=== PATIENT | female | born 1970 | race Caucasian/White ===

== ENCOUNTER 2024-11-24 07:54 | Outpatient (CLI) | payer OTHER, SELFPAY ==
--- NOTE | 2024-11-24 | CA_ITS ---
APPROVED REPORT EXAM: Comprehensive 2D, Doppler, and color-flow Echocardiogram Neon Technician: Faviola Veloz RT(R) Ht: 5 ft 8 in Wt: 225lbs BSA: 2.15 BP: 135/66 mmHg Indications: CP, DM, fatigue 2D Dimensions LVEF (Jeffery's) 47.60 % F: 54 - 74 LV Volume 113.30 mL F: 46 - 106 LV Volume Index 52.7 mL/m2 F: 29 - 61 LA Volume 33.80 mL LA Volume Index 15.72 mL/m2 (M/F) 16-34 EF AP4 58.60 % EF AP2 33.6 % EF BP 47.6 % GL Strain -16.2 % M-Mode Dimensions RVDd 3.42 cm (0.9-2.6) LA Diam 3.79 cm (1.9-4.0) LVDd 4.75 cm (3.5-5.7) LVDs 3.38 cm (3.5-5.7) IVSd 0.93 cm (0.6-1.1) PWd 0.93 cm (0.6-1.1) EF (Teich) 55.40% FS 28.80% EDV (Teich) 104.90 mL ESV (Teich) 46.80 mL LV Diastology E Decel Time 150 (160-240 msec) E/A Ratio 0.8 Mitral Valve MV E Max Steve. 73.0 (40-130 cm/s) MV A Velocity 95.0 (40-130 cm/s) E/A Ratio 0.77 MV PHT 44.0 ms Left Ventricle The left ventricle is normal size. The left ventricular systolic function is normal. The left ventricular ejection fraction is within the normal range. There is increased LV wall thickness. There is normal LV segmental wall motion. The left ventricular diastolic function is normal. LVEF is 55%. Right Ventricle The right ventricle is normal size. The right ventricular systolic function is normal. Atria The left atrium size is normal. The right atrium size is normal. There is no Doppler evidence of interatrial shunt. Aortic Valve The aortic valve opens well. There is no aortic valvular stenosis. Trace aortic regurgitation. Mitral Valve The mitral valve is normal in structure. No evidence of mitral valve stenosis. Mild mitral regurgitation. Tricuspid Valve Tricuspid valve is grossly normal in structure and function. Trace tricuspid regurgitation. There is insufficent TR jet to estimate RVSP. Pulmonic Valve The pulmonary valve is normal in structure. Trace pulmonic regurgitation. Great Vessels The aortic root is normal in size. IVC is normal in size and collapses >50% with inspiration. Pericardium There is no pericardial effusion. Other Information Study Quality: Fair Conclusion Normal biventricular systolic function. Mild MR. Electronically signed by : Sofy Knox MD 12/03/2024 14:49:42
== END 2024-11-24 23:59 | disposition home or self-care (01) ==
LOC: RT 07:55
PROVIDERS: PCP Family Medicine; Visit Provider Internal Medicine
DX: R07.89 Other chest pain (principal)
CPT/HCPCS: 93306

== ENCOUNTER 2024-11-28 10:59 | Outpatient (CLI) | payer OTHER, SELFPAY ==
--- NOTE | 2024-11-28 | CA_ITS ---
APPROVED REPORT Exam: Pharmacologic Technologist: Patricia Seals Ht: 5 ft 8 in Wt: 225 lbs BSA: 2.15 m2 HR: 88 bpm BP: 171/75 mmHg Stress Test Details Test: Lexiscan HR Resting HR: 88 bpm Max Heart Rate (APMHR): 164 bpm Max HR Achieved: 104 bpm Target HR (85% APMHR): 139 bpm % of APMHR: 63 Recovery HR: 98 bpm BP Resting BP: 171.0/75.0 mmHg Max BP: 171.0/75.0 mmHg Recovery BP: 152.0/69.0 mmHg ECG Resting ECG: Sinus rhythm Stress ECG Conclusion Symptoms: Headache, chest pressure Arrhythmias/ectopy: - ST-T Changes: Less than [address] depression. Conclusion: EKG unremarkable due to Lexiscan infusion. Electronically signed by : Sofy Knox MD 11/29/2024 00:28:56
[2024-11-28] MEDS: SODIUM CHLORIDE 0.9% 10ML SYR (RAD ONLY) 10 ML IV ×2 (11:10→12:15)
--- NOTE | 2024-11-28 11:30 | NM_ITS ---
APPROVED REPORT Exam: Nuclear Stress Test Indication: htn, diabetes, hyperlipidemia, c.p., sob, fatigue Patient Location: Outpatient Stress Tech: Patricia Seals NM Tech:WALTER Parsons RT (R)(N)(M) Ht: 5 ft 8 in Wt: 220 lbs Bra Size: c HR: 88 bpm BP: 171/75 mmHg BSA: 2.13 m2 TID: 1.04 BMI: 33.4 History: htn, diabetes, hyperlipidemia, c.p., sob, fatigue Procedure: Patient received 0.4 mg of intravenous Lexiscan, resting heart rate 88 bpm, resting blood pressure 171/75 mmHg, with Lexiscan maximum heart rate achieved was 104 bpm which is % of the maximum predicted heart rate and blood pressure was 139/64 mmHg. pt did complain of chest pressure with lexiscan Cardiac Stress and Resting SPECT Images: Cardiac Stress and Resting SPECT images were obtained using technetium 99m Myoview 31.6 mCi stress and 10.77 mCi at rest. Technically difficult study due to significant soft tissue diaphragmatic overlap with the cardiac borders. This may affect the diagnostic interpretation of the study findings. Resting and stress imaging in supine positions demonstrate a medium sized, moderate, fixed perfusion defect in the basal anterior and basal inferior LV guy. Both of these perfusion defects are no longer visualized with prone stress imaging. Findings are suggestive of diaphragmatic and soft tissue attenuation. Gated imaging demonstrates normal global and regional LV systolic function. LVEF is calculated at 60%. Conclusion: Technically difficult study due to significant soft tissue diaphragmatic overlap with the cardiac borders. This may affect the diagnostic interpretation of the study findings. Diaphragmatic and soft tissue attenuation are present. Gated imaging demonstrates normal global and regional LV systolic function. LVEF is calculated at 60%. In the setting of technically difficult study, further evaluation with alternative imaging modalities (i.e. CCTA) may be suggested, if there is high clinical suspicion and if CCTA is feasible/indicated. Electronically signed by : Sofy Knox MD 11/29/2024 00:24:53
[2024-11-28] MEDS: REGADENOSON 0.4MG/5ML SYRINGE 0.4 MG IV (12:15)
[2024-11-28] MEDS: ISOTOPE MYOVIEW (PER STUDY) 1 DOSE IV (12:20)
--- OUTSIDE RECORDS SUMMARY | 2024-11-30 21:09 | XMS_ITS | Data Portability ---
Author Organization [facility] Address [address] [place] [address] Care Team Providers Care Silo Painter Name Role Phone [facility] END[facility] Referring Tye mars Assessment Encounter Date Assessment Date Assessment LastModified by Organization Details LastModified Time 02/04/2023 02/04/2023 Rosemarie schwab s for a wellness check up. She has poorly controlled type 2 diabetes mellitus that is complicated with severe peripheral neuropathy. For years she has also had issues with medication non-compliance. She is followed now by endocrinology but she missed many of her appointments and recently has resumed. A recent visit to endocrinology was discussed and she does understand the gravity of her disease and plans to take better care of herself and be more compliant with her medical visits. 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 She has trouble getting help at her business and feels she can never leave. We discussed that she will just at times need to consider closing for a couple of weeks in mid summer. She advises that her sister could cover for her if needed but she does live in [place]. We reviewed her medications and labs. We highly recommend resuming a statin medication and have ordered pravastatin and this has been a common theme for her. Medication compliance has been a problem. She has had some difficulty with insulin compliance in the past but advises she tries to stay compliant now. Her vision of course has been terrible with the hyperglycemia and the claims specialist she has been going to has just tried to adjust glasses. She really needs ophthalmology evaluation and follow up and we will refer to for that. There are no ophthalmologists in [place] for her to see and with her choices are more limited. A calculated ten year CV risk is 4.13%. She works long hours and also tries to do some yard work but recently has had a couple of falls in her yard with the weakness and numbness in her legs and feet. Both legs are very bruised from her recent falls and a little swollen. Her sensation is so poor that we are concerned about missing a DVT and/or even fractures, so imaging with venous duplex and lower leg x-rays are ordered. Her neuropathy also affects her hands and she cannot cloth picker small things with her fingers very easily. She is due a mammogram. Last year she finally had colon cancer screening and is now followed by a development educator for exocrine pancreatic insufficiency and has been compliant with the Creon supplement. The rash on top of the right foot is most consistent with tinea and she is using over the counter anti-fungal cream and should continue that. She declines flu vaccines stating that every time she received one she became ill. She has also declined Covid vaccines. She should have a tetanus update and receives that today. We also encourage the Shingrix series and she will consider that. We recommend a close follow up and continue to encourage healthy lifestyle choices. carolyn Not available 02/07/2023 10:52:33 04/05/2023 04/05/2023 Has a dental abs cess that is not responding to amoxil and her dentist advised her to see her PCP for management and he plans an extraction. She has had right rotator cuff surgery and has known rotator cuff syndrome on the left that is getting worse with radiation into the elbow and sometimes into the hand. We will recommend orthopedic referral for that. She prefers with the coverage. carolyn Not available 04/05/2023 15:54:22 10/26/2023 10/26/2023 Rosemarie present for symptoms of a UTI and her culture is reviewed. Treatment is started. She has very poorly controlled type 2 diabetes mellitus and has a history of questionable medication compliance as well as poor dietary habits. She has been referred to endocrinology but is not compliant with her follow ups there. Recent A1C is 13.9%. She has a profoundly severe peripheral neuropathy and cannot trim her own toenails without cutting herself so we will refer to podiatry. She went to a coating manager at but was advised she could not return for toenail issues there. Not available 10/27/2023 13:08:07 07/17/2024 07/17/2024 Rosemarie has a U TI that requires treatment and since there is flank pain we will also give a dose of Rocephin IM. She is encouraged to drink more water. She is followed by endocrinology and finally has her diabetes under better control. Not available 07/17/2024 11:50:31 11/09/2024 11/09/2024 Rosemarie has bee n having chest heaviness since August. She had it worse today and she blames it on the neck injection she had in August. We are concerned about her high risk for cardiac disease. She is taking Trulicity but has stopped the pravastatin and we encourage her to take it daily along with a low dose chewable aspirin. She declined to take the lisinopril for BP so we will prescribe a low dose of metoprolol instead. She needs Cardiac referral and is advised that she should go to the ER if this is getting worse. She is taking tylenol for pain and is advised to stay off all NSAIDs. Not available 11/09/2024 15:19:43 Plan of Treatment Reminders Order Date Submit Date Provider Last Modified By Organization Details Last Modified Time Details Appointments None recorded. Lab culture, urine 2023 024 [facility], [address], [place], [address], 4 09:35:36 urinalysis, dipstick 2023 024 margie n5 [facility], [address] [facility], [place], [address], 4 11:39:39 Referral cardiologis t referral 2024 025 moncho 12 Jr Knox MD, [address], [place], [address], 5 08:10:49 coating manager referral 2023 024 chavapleto n5 Danya Hutchinson MD, [address] , [place], [address], 4 12:10:37 orthopedic surgeon referral - left shoulder rotator cuff problems 2022 023 margie n5 Kevan Lopes MD, [address], [address], [place], [address], 3 08:25:39 ophthalmolo gist referral 2022 023 arnavo n5 [facility], [address], [address], [place], [address], 3 15:51:17 Procedures None recorded. Surgeries None recorded. Imaging MAMMO, screening, digital, bilateral 2022 023 [facility], [address] [facility] , [place], [address], 3 12:01:52 US, duplex, venous, lower extremity - positive Henrique right Swelling and recent injuries both lower legs 2022 023 [facility], [address] [facility] , [place], [address], 3 10:13:39 XR, tibia + fibula, 2 view - falls with extensive bruising and legs hurt but severe peripheral neuropathy form knees down alters her perception 2022 023 [email or web address] 12 [facility] (Imaging), [address] [facility] [place], [address], 3 08:03:17 Medication Orders metoprolol succinate ER 25 mg tablet,exte nded release 24 hr 2024 025 [facility], [address] [place], [address], 5 15:18:58 ciprofloxac in 500 mg tablet 2023 025 [facility], [address] [place], [address], 5 15:05:08 ceftriaxone 1 gram solution for injection 2023 024 [place] [address] [facility], [address] [place], [address], 5 15:04:43 ciprofloxac in 0.3 % eye drops 2023 025 [facility], [address] [place], [address], 5 15:04:59 nitrofurant oin monohydrate /macrocryst als 100 mg capsule 2023 024 [facility], [address] [place], [address], 4 11:47:04 gentamicin 40 mg/mL injection solution 2023 024 [place] [address] [facility], [address] [place], [address], 5 15:04:37 pravastatin 40 mg tablet 2023 024 [facility], [address] [place], [address], 4 11:42:25 ceftriaxone 1 gram solution for injection 2022 023 [place] [address] [facility], [address] [place], [address], 5 15:04:43 clindamycin HCl 150 mg capsule 2022 023 [email or web address] n5 [facility], [address] [place], [address], 4 10:39:23 oxycodone-a cetaminophe n 5 mg-325 mg tablet 2022 023 [facility], [address] [place], [address], 4 11:10:46 pravastatin 40 mg tablet 2022 023 [facility], [facility] [place], [address], 3 08:36:59 Patient TargetsNo targets recorded. Patient Instructions Encounter Date Encounter Id Patient Instructions Last Modified By Organization Details Last Modified Time 02/04/2023 [id number] recombinant zoster (shingles) vaccine: what you need to know Not available 02/04/2023 12:28:06 learning about healthy weight Not available 02/04/2023 12:28:06 Reason for Referral Home Energy Auditor Referral for Insulin treated type 2 diabetes mellitus Referring Physician: [facility], Encounter Date: 02/04/2023 Orthopedic Surgeon Referral for Pain of left shoulder joint left shoulder rotator cuff problems Referring Physician: [facility], Encounter Date: 04/05/2023 Lab Technologist Referral for Unab le to cut own toenails Referring Physician: [facility], Encounter Date: 10/26/2023 Puffer Tender Referral for Ch est pain Referring Physician: [facility], Encounter Date: 11/09/2024 Results Created Date Observation Date Name Description Value Unit Range Abnormal Flag Note LastModifiedBy Organization Detail LastModifiedTime 01/30/2001/29/2023 micro album in/cr eatin ine, ratio panel , urine microalbumin :creatinine 40 high Not Available [facility] (Lab) [address] [facility] [place], [address], 01/30/2023 08:18:00 01/30/20 23 01/29/2023 hepat itis C virus Ab, serum hepatitis C Ab negati ve normal Not Available [facility] (Lab) [address] [facility] [place], [address], 01/30/2023 09:13:29 01/30/20 23 01/29/2023 HbA1c (hemo globi n A1c), blood HGBA1C 13.2 high Not Available [facility] (Lab) [address] [facility] [place], [address], 01/29/2023 10:44:58 01/30/20 23 01/29/2023 HbA1c (hemo globi n A1c), blood cholesterol 196 normal Not Available [facility] (Lab) [address] [facility] [place], [address], 01/29/2023 10:44:58 01/30/20 23 01/29/2023 HbA1c (hemo globi n A1c), blood LDL 108 normal Not Available [facility] (Lab) [address] [facility] [place], [address], 01/29/2023 10:44:58 01/30/20 23 01/29/2023 HbA1c (hemo globi n A1c), blood glucose 367 high Not Available [facility] (Lab) [address] [facility] [place], [address], 01/29/2023 10:44:58 01/30/20 23 01/29/2023 HbA1c (hemo globi n A1c), blood potassium 4.3 normal Not Available [facility] (Lab) [address] [facility] [place], [address], 01/29/2023 10:44:58 01/30/20 23 01/29/2023 TSH, serum or plasm a HGBA1C 13.2 high Not Available [facility] (Lab) [address] [facility] [place], [address], 01/29/2023 10:44:58 01/30/20 23 01/29/2023 TSH, serum or plasm a cholesterol 196 normal Not Available [facility] (Lab) [address] [facility] [place], [address], 01/29/2023 10:44:58 01/30/20 23 01/29/2023 TSH, serum or plasm a LDL 108 normal Not Available [facility] (Lab) [address] [facility] [place], [address], 01/29/2023 10:44:58 01/30/20 23 01/29/2023 TSH, serum or plasm a glucose 367 high Not Available [facility] (Lab) [address] [facility] [place], [address], 01/29/2023 10:44:58 01/30/20 23 01/29/2023 TSH, serum or plasm a potassium 4.3 normal Not Available [facility] (Lab) [address] [facility] [place], [address], 01/29/2023 10:44:58 01/30/20 23 01/29/2023 lipid panel , serum HGBA1C 13.2 high Not Available [facility] (Lab) [address] [facility] [place], [address], 01/29/2023 10:44:58 01/30/20 23 01/29/2023 lipid panel , serum cholesterol 196 normal Not Available [facility] (Lab) [address] [facility] [place], [address], 01/29/2023 10:44:58 01/30/20 23 01/29/2023 lipid panel , serum LDL 108 normal Not Available [facility] (Lab) [address] [facility] [place], [address], 01/29/2023 10:44:58 01/30/20 23 01/29/2023 lipid panel , serum glucose 367 high Not Available [facility] (Lab) [address] [facility] [place], [address], 01/29/2023 10:44:58 01/30/20 23 01/29/2023 lipid panel , serum potassium 4.3 normal Not Available [facility] (Lab) [address] [facility] [place], [address], 01/29/2023 10:44:58 01/30/20 23 01/29/2023 CMP, serum or plasm a HGBA1C 13.2 high Not Available [facility] (Lab) [address] [facility] [place], [address], 01/29/2023 10:44:58 01/30/20 23 01/29/2023 CMP, serum or plasm a cholesterol 196 normal Not Available [facility] (Lab) [address] [facility] [place], [address], 01/29/2023 10:44:58 01/30/20 23 01/29/2023 CMP, serum or plasm a LDL 108 normal Not Available [facility] (Lab) [address] [facility] [place], [address], 01/29/2023 10:44:58 01/30/20 23 01/29/2023 CMP, serum or plasm a glucose 367 high Not Available [facility] (Lab) [address] [facility] [place], [address], 01/29/2023 10:44:58 01/30/20 23 01/29/2023 CMP, serum or plasm a potassium 4.3 normal Not Available [facility] (Lab) [address] [facility] [place], [address], 01/29/2023 10:44:58 01/30/20 23 01/29/2023 CBC w/ auto diff HGBA1C 13.2 high Not Available [facility] (Lab) [address] [facility] [place], [address], 01/29/2023 10:13:49 01/30/20 23 01/29/2023 CBC w/ auto diff cholesterol 196 normal Not Available [facility] (Lab) [address] [place] [address] [place], [address], 01/29/2023 10:13:49 01/30/20 23 01/29/2023 CBC w/ auto diff LDL 108 normal Not Available [facility] (Lab) [address] [place] [address] [place], [address], 01/29/2023 10:13:49 01/30/20 23 01/29/2023 CBC w/ auto diff glucose 367 high Not Available [facility] (Lab) [address] [place] [address] [place], [address], 01/29/2023 10:13:49 01/30/20 23 01/29/2023 CBC w/ auto diff potassium 4.3 normal Not Available [facility] (Lab) [address] [place] [address] [place], [address], 01/29/2023 10:13:49 04/07/20 23 04/07/2023 hospi yojana labs HGBA1C 8.7 high Not Available [facility] (Lab) [address] [place] [address] [place], [address], 04/07/2023 09:34:08 04/07/20 23 04/07/2023 [facility] labs cholesterol 172 normal Not Available [facility] (Lab) [address] [place] [address] [place], [address], 04/07/2023 09:34:08 04/07/20 23 04/07/2023 [facility] labs triglyceride s 140 normal Not Available [facility] (Lab) [address] [place] [address] [place], [address], 04/07/2023 09:34:08 04/07/20 23 04/07/2023 [facility] labs LDL 86 normal Not Available [facility] (Lab) [address] [place] [address] [place], [address], 04/07/2023 09:34:08 04/07/20 23 04/07/2023 [facility] labs HDL 58 normal Not Available [facility] (Lab) [address] [facility] [place], [address], 04/07/2023 09:34:08 10/21/19 24 10/21/2023 urina lysis compl ete, refle x cultu re HGBA1C 13.9 critical high Not Available [facility] [address] [place], [address], 10/21/2023 10:31:08 10/21/19 24 10/21/2023 CMP, serum or plasm a HGBA1C 13.9 critical high Not Available [facility] [address] [place], [address], 10/21/2023 10:31:08 10/21/19 24 10/21/2023 CBC w/ auto diff HGBA1C 13.9 critical high Not Available [facility] [address] [place], [address], 10/21/2023 10:29:13 07/17/20 24 07/20/2024 CULTU RE, URINE , ROUTI NE culture, urine, routine abnormal CULTU RE, URINE , ROUTI NE Micro Numbe r: [id number] Test Statu s: Final Speci men Sourc e: Urine Speci men Quali ty: Adequ ate Resul t: 50,00 0-100 ,000 CFU/m L of Klebs iella pneum oniae K.pne umoni ae ----- ----- ----- - INT EMILIA AMOX/ CLAVU LANAT E S <=2 AMP/S ULBAC TROTTER S 8 CEFAZ TYLER NR <=4 2 CEFEP HERNANDO S <=0.1 2 CEFTA ZIDIM E S <=1 CEFTR IAXON E S <=0.2 5 CIPRO FLOXA PIETRO S <=0.0 6 GENTA MICIN S <=1 IMIPE NEM S <=0.2 5 LEVOF LOXAC IN S <=0.1 2 MEROP ENEM S <=0.2 5 NITRO FURAN TOIN I 64 PIP/T AZOBA CTAM S <=4 TRIME THOPR IM/FERNANDEZ LFA S <=20 S = Susce ptibl e I = Inter media te R = Resis tant NS = Not susce ptibl e SDD = Susce ptibl e Dose Depen dent * = Not Teste d NR = Not Repor jacoby NN = See Thera py Comme nts THERA PY COMME NTS Note 1: For infec tions other than uncom plica jacoby UTI cause d by E. coli, K. pneum oniae or P. mirab ilis: Cefaz tyler is resis tant if EMILIA > or = 8 mcg/m L. (Dist ingui shing susce ptibl e versu s inter media te for isola prabhu with EMILIA < or = 4 mcg/m L requi res addit ional testi ng.) Note 2: For uncom plica jacoby UTI cause d by E. coli, K. pneum oniae or P. mirab ilis: Cefaz tyler is susce ptibl e if EMILIA <32 mcg/m L and predi cts susce ptibl e to the oral agent s cefac cayetano, cefdi paco, cefpo doxim e, cefpr ozil, cefur oxime , cepha lexin and lorac arbef . Not Available [facility] [address] [facility], [place], [address], 07/20/2024 09:35:36 07/17/20 24 07/17/2024 urina lysis , dipst ick Leukocytes Modera te Not Available [facility] [address] [place], [address], 07/17/2024 11:38:45 07/17/20 24 07/17/2024 urina lysis , dipst ick Nitrite positi ve Not Available [facility] [address] [place], [address], 07/17/2024 11:38:45 07/17/2007/17/2024 urina lysis , dipst ick Urobilinogen .2 Not Available [facility] [address] [place], [address], 07/17/2024 11:38:45 07/17/2007/17/2024 urina lysis , dipst ick Protein Negati ve Not Available [facility] [address] [place], [address], 07/17/2024 11:38:45 07/17/2007/17/2024 urina lysis , dipst ick pH 6.5 Not Available [facility] [address] [place], [address], 07/17/2024 11:38:45 07/17/2007/17/2024 urina lysis , dipst ick Blood Negati ve Not Available [facility] [address] [place], [address], 07/17/2024 11:38:45 07/17/2007/17/2024 urina lysis , dipst ick Specific [place] 1.030 Not Available [facility] [address] [place], [address], 07/17/2024 11:38:45 07/17/2007/17/2024 urina lysis , dipst ick Ketone Negati ve Not Available [facility] [address] [place], [address], 07/17/2024 11:38:45 07/17/2007/17/2024 urina lysis , dipst ick Bilirubin Negati ve Not Available [facility] [address] [place], [address], 07/17/2024 11:38:45 07/17/2007/17/2024 urina lysis , dipst ick Glucose Negati ve Not Available [facility] [address] , [place], [address], 07/17/2024 11:38:45 02/06/20 23 02/05/2023 XR, tibia + fibul a, 2 view No observ ation record ed. [address] (Central Scheduling) [address] [facility] [place], [address], 02/19/2023 14:01:09 02/06/20 23 02/05/2023 XR, tibia + fibul a, 2 view No observ ation record ed. [address] (Central Scheduling) [address] [facility] [place], [address], 02/19/2023 14:01:09 02/12/20 23 02/11/2023 US, lindale x, venou s, lower extre mity No observ ation record ed. [address] (Central Scheduling) [address] [facility] [place], [address], 02/19/2023 14:01:10 02/12/20 23 02/11/2023 MAMMO , scree giuseppe, digit al, bilat eral No observ ation record ed. [address] (Central Scheduling) [address] [facility] [place], [address], 02/19/2023 14:01:10 02/20/20 23 02/19/2023 MAMMO , diagn ostic , contr ast enhan yessica, digit al, unila teral No observ ation record ed. [address] (Central Scheduling) [address] [facility] [place], [address], 02/21/2023 12:29:07 02/20/20 23 02/19/2023 MAMMO , scree giuseppe, unila teral No observ ation record ed. [address] (Central Scheduling) [address] [facility] [place], [address], 02/21/2023 12:32:31 03/18/20 23 03/18/2023 XR, chest , 2 view No observ ation record ed. [address] (Central Scheduling) [address] [facility] [place], [address], 03/23/2023 17:27:31 08/13/20 23 08/08/2023 XR, knee No observ ation record ed. [address] (Central Scheduling) [address] [facility] [place], [address], 09/03/2023 15:50:00 08/13/20 23 08/08/2023 XR, hip, unila teral , 2 or 3 view No observ ation record ed. [address] (Central Scheduling) [address] [facility] [place], [address], 09/03/2023 15:49:07 06/29/20 24 06/27/2024 US, bubba x, amanda s, extre mity, compl ete No observ ation record ed. [address] [facility] [address], [place], [address], 07/02/2024 11:15:08 11/30/19 25 11/28/2024 imagi ng/di agnos tic resul t No observ ation record ed. [place] [address], [place], [address], 11/29/2024 00:27:52 11/30/19 25 11/28/2024 imagi ng/di agnos tic resul t No observ ation record ed. [facility] [address], [place], [address], 11/29/2024 00:32:28 Result Notes None recorded. Problems Name Problem SNOMED Code Status Onset Date Resolution Date Notes Provider Name and Address Organization Details Recorded Time Abdominal pain [id number] Rebeca Guzman MD [address], [address] [place] [address], [facility] 6 10:11:24 Palpitations [id number] Rebeca Guzman MD [address] [place] [address], [facility] 6 10:11:24 Disorder due to type 2 diabetes mellitus 724932696 Active Marely Guzman MD [address] [address], [facility] 6 20:07:02 Hypertensive disorder 13036514 Active Marely Guzman MD [address] [address], [facility] 6 10:11:24 Diabetes mellitus 80910289 Active Marely Guzman MD [address] [address], [facility] 6 10:11:24 Edema [id number] Rebeca Guzman MD [address] [address], [facility] 6 10:11:24 Foot joint - painful on movement [id number] Rebeca Guzman MD [address] [address], [facility] 6 10:11:24 Joint pain in ankle and foot Active Marely Guzman MD [address] [address], [facility] 6 10:11:24 Peripheral neuropathic pain [id number] Rebeca Guzman MD [address] [address], [facility] 6 10:11:24 Cellulitis of lower limb [id number] Rebeca Guzman MD [address] [address], [facility] 6 10:11:24 Ankle joint pain [id number] Rebeca Guzman MD [address] [address], [facility] 6 10:11:24 Dog bite - wound [id number] Rebeca Guzman MD [address] [address], [facility] 6 10:11:24 Neuropathy 724139198 Rebeca Guzman MD [address] [address], [facility] 6 10:11:24 Dyspnea 758991615 Rebeca Guzman MD [address] [address], [facility] 6 10:11:24 Type 2 diabetes mellitus [id number] Rebeca Guzman MD [address] [address], [facility] 6 10:11:24 Menopausal problem [id number] Rebeca Guzman MD [address] [address], [facility] 6 10:11:24 Dry skin dermatitis [id number] Rebeca Guzman MD [address] [address], [facility] 6 10:11:24 Onychomycosis 145373802 Active Marely Guzman MD [address] [address], [facility] 6 10:11:24 Hyperglycemia 91698872 Active Marely Guzman MD [address] [address], [facility] 6 20:07:02 Dermatophytosi s of the body Active Marely Guzman MD [address] [address], [place] [facility] 6 10:11:24 Gastroesophage al reflux disease 632606328 Active Marely Guzman MD [address] [address], [place] [facility] 6 10:11:24 Urinary tract infectious disease 90229501 Active Marely Guzman MD [address] [address], [place] [facility] 6 10:11:24 Benign essential hypertension 0435541 Active Marely Guzman MD [address] [address], [place] [facility] 6 10:11:24 Disorder of peripheral autonomic nervous system 881969379 Active Marely Guzman MD [address] [address], [facility] 6 10:11:24 Allergic rhinitis 87097036 Active Marely Guzman MD [address] [address], [facility] 6 10:11:24 Disorder of urinary tract 64432581 Active Marely Guzman MD [address] [address], [place] [facility] 6 10:11:24 Disorder of nervous system due to type 2 diabetes mellitus [id number] Rebeca Guzman MD [address] [address], [facility] 6 10:11:24 Sciatica 56552979 Rebeca Guzman MD [address] [address], [facility] 6 10:11:24 Pure hyperglyceride miroslava [id number] Rebeca Guzman MD [address] [address], [facility] 6 10:11:24 Type 2 diabetes mellitus without complication [id number] Rebeca Guzman MD [address] [address], [facility] 6 10:11:24 Obstructive sleep apnea syndrome 24222400 Rebeca Guzman MD [address] [address], [facility] 6 10:11:24 Anemia 602860504 Rebeca uGzman MD [address] [address], [facility] 6 10:11:24 Hyperlipidemia 35281944 Rebeca Guzman MD [address] [address], [facility] 6 10:11:24 Backache [id number] Rebeca Guzman MD [address] [address], [place] - [facility] 6 10:11:24 Urine finding 103362283 Active Marely Guzman MD [address] [address], [place] [facility] 6 10:11:24 Malaise and fatigue 888434261 Active Marely Guzman MD [address] [address], [place] [facility] 6 10:11:24 Mononeuritis of lower limb Active Marely Guzman MD [address] [address], [place] [facility] 6 10:11:24 Candidal vulvovaginitis 70112361 Active Marely Gzuman MD [address] [address], [place] [facility] 6 20:07:02 Polyuria 03469476 Active Marely Guzman MD [address] [address], [place] [facility] 6 10:11:24 Carpal tunnel syndrome 02987419 Active Marely Guzman MD [address] [address], [place] [facility] 6 10:11:24 Pancreatic steatorrhea 49670045 Active Marely Guzman MD [address] [address], [place] [facility] 6 10:11:24 Insomnia with sleep apnea 92304671 Active Marely Guzman MD [address] [address], [place] - [facility] 6 10:11:24 Acute pancreatitis 661871228 Active Marely Guzman MD [address] [address], [place] [facility] 6 10:11:24 Depressive disorder 21964623 Active Marely Guzman MD [address] [address], [place] [facility] 6 10:11:24 Proteinuria 85766174 Active Marely Guzman MD [address] [address], [place] [facility] 6 10:11:24 Cellulitis and abscess of toe 313674853 Active Marely Guzman MD [address] [address], [place] [facility] 6 10:11:24 Obesity 432507169 Active Marely Guzman MD [address] [address], [place] [facility] 6 10:11:24 Enthesopathy of elbow region 09835181 Active Marely Guzman MD [address] [address], [place] [facility] 6 10:11:24 Lyme disease 10483681 Active Marely Guzman MD [address] [address], [place] [facility] 6 10:11:24 Chest pain 84046569 Active Marely Guzman MD [address] [address], [place] 6 10:11:24 Low back pain 937251352 Active Marely Guzman MD [address] [facility], [place], [address], [facility] 6 10:11:24 Problem Notes None recorded. Procedures Surgical History Date Name Laterality Status Provider Name and Address Organization Details Recorded Time 04/28/20 18 Shoulder joint surgery completed Marely Guzman MD [address] [facility], [place], [address], [facility] 01/22/2020 10:15:24 12/22/19 18 Shoulder joint surgery completed Marely Guzman MD [address] [facility] [address], [place], [address], [facility] 01/22/2020 10:14:22 08/23/19 11 Other completed Not Available [facility] 07/07/2011 04:58:32 08/23/19 10 Cholecystectomy completed Not Available [facility] hospital 07/07/2011 04:58:32 08/23/19 02 Hysterectomy completed Not Available [facility] hospital 07/07/2011 04:58:32 Imaging Results Imaging Date Name Status LastModified by Organiz ation Details LastModified Time 02/05/2023 XR, tibia + fibula, 2 view completed [address] (Central Scheduling) [address] [facility] [place], [address], 02/19/2023 14:01:09 02/05/2023 XR, tibia + fibula, 2 view completed [address] (Central Scheduling) [address] [facility] [place], [address], 02/19/2023 14:01:09 02/11/2023 US, duplex, venous, lower extremity completed [address] (Central Scheduling) [address] [facility] [place], [address], 02/19/2023 14:01:10 02/11/2023 MAMMO, screening, digital, bilateral completed [address] (Central Scheduling) [address] [facility] [place], [address], 02/19/2023 14:01:10 02/19/2023 MAMMO, diagnostic, contrast enhanced, digital, unilateral completed [address] (Central Scheduling) [address] [facility] [place], [address], 02/21/2023 12:29:07 02/19/2023 MAMMO, screening, unilateral completed [address] (Central Scheduling) [address] [facility] [place], [address], 02/21/2023 12:32:31 03/18/2023 XR, chest, 2 view completed [address] (Central Scheduling) [address] [facility] [place], [address], 03/23/2023 17:27:31 08/08/2023 XR, knee completed [address] (Central Scheduling) [address] [facility] [place], [address], 09/03/2023 15:50:00 08/08/2023 XR, hip, unilateral, 2 or 3 view completed [address] (Central Scheduling) [address] [place] [address] [place], [address], 09/03/2023 15:49:07 06/27/2024 US, duplex, venous, extremity, complete completed [address] [facility] [address] [facility] [address], [place], [address], 07/02/2024 11:15:08 11/28/2024 imaging/diagnos tic result active [facility] [address], [address], 11/29/2024 00:27:52 11/28/2024 imaging/diagnos tic result active [facility] [address], [address], 11/29/2024 00:32:28 Procedure Notes None recorded. Medical Equipment None Reported. Allergies No known drug allergies Medications Name Sig Start Date Stop Date Status Note LastModified by Organization Details LastModified Time Prescript ion - Prior Authoriza tion Request 05/23 completed Not Available Not Available Not Available cyclobenz aprine 10 mg tablet TAKE 1 TABLET BY MOUTH EVERY 8 HOURS NEEDED 11/09 completed Not Available Not Available Not Available amoxicill in 500 mg capsule TAKE 1 CAPSULE BY MOUTH TWICE DAILY FOR 7 DAYS 01/12 completed Not Available Not Available Not Available methocarb whitney 500 mg tablet TAKE 1 TABLET BY MOUTH THREE TIMES DAILY NEEDED FOR MUSCLE SPASMS 11/09 completed Not Available Not Available Not Available metformin 500 mg tablet TAKE 2 TABLETS BY MOUTH TWICE DAILY. 01/12 completed Not Available Not Available Not Available nystatin 100,000 unit/mL oral suspensio n SWISH AND SWALLOW 10 ML BY MOUTH 4 TIMES DAIY BEFORE MEALS AND AT BEDTIME 01/12 completed Not Available Not Available Not Available Vitamin B-12 1,000 mcg/mL injection solution Inject 1 mL every month by intramus cular route. 2011 active Not Available Not Available Not Avai lable clindamyc in HCl 300 mg capsule 08/16 completed Not Available Not Available Not Available azithromy pietro 250 mg tablet TAKE 2 TABLETS BY MOUTH THE FIRST DAYS DOSE, THEN TAKE 1 TABLET DAILY FOR 4 MORE DAYS. 01/12 completed Not Available Not Available Not Available pravastat in 40 mg tablet TAKE 1 TABLET BY MOUTH EACH EVENING. active Not Available Not Available No t Available Glucagon Emergency Kit 1 mg solution for injection USE DIRECTED . active Not Available Not Available No t Available nystatin 100,000 unit/gram topical ointment APPLY TO THE AFFECTED AREA TWICE DAILY. 10/30 completed Not Available Not Available Not Available fluconazo le 150 mg tablet TAKE 1 TABLET BY MOUTH DAILY. 01/12 completed Not Available Not Available Not Available hydrocodo ne 5 mg-acetam inophen 325 mg tablet 04/24 completed Not Available Not Available Not Available meloxicam 15 mg tablet TAKE 1 TABLET BY MOUTH DAILY PRN Shoulder pain 11/09 completed Not Available Not Available Not Available FreeStyle Lancets 28 gauge USE TO TEST GLUCOSE 3 TIMES DAILY active Not Available Not Available No t Available lisinopri l 20 mg tablet TAKE 1 TABLET DAILY 01/12 completed Not Available Not Available Not Available clindamyc in HCl 150 mg capsule TAKE 1 CAPSULE BY MOUTH EVERY 6 HOURS FOR 7 DAYS. 10/25 completed Not Available Not Available Not Available metronida zole 500 mg tablet Take 1 tablet every 8 hours by oral route for 7 days. 08/16 completed Not Available Not Available Not Available ciproflox acin 250 mg tablet TAKE 1 TABLET BY MOUTH EVERY 12 HOURS FOR 5 DAYS. 10/25 completed Not Available Not Available Not Available ciproflox acin 500 mg tablet Take 1 tablet twice a day by oral route for 7 days. 11/09 completed Not Available Not Available Not Available sulfameth oxazole 800 mg-trimet hoprim 160 mg tablet TAKE 1 TABLET EVERY 12 HOURS 01/12 completed Not Available Not Available Not Available hydrocodo ne 10 mg-acetam inophen 325 mg tablet Take 1 tablet every 6 hours by oral route as needed. 02/21 completed Not Available Not Available Not Available tramadol 50 mg tablet 04/15 completed Not Available Not Available Not Available spironola ctone 25 mg tablet TAKE 1 TABLET BY MOUTH EVERY DAY. 10/02 completed Not Available Not Available Not Available butalbita l-acetami nophen-ca ffeine 50 mg-325 mg-40 mg tablet TAKE 1 TABLET BY MOUTH EVERY 4 HOURS NEEDED. 01/12 completed Not Available Not Available Not Available ketorolac 10 mg tablet 01/21 completed Not Available Not Available Not Available Aleve 220 mg tablet Take 1 tablet every 12 hours by oral route as needed. 01/07 completed Not Available Not Available Not Available oxycodone -acetamin ophen 5 mg-325 mg tablet TAKE 1 TABLET BY MOUTH EVERY 6 HOURS NEEDED FOR 3 DAYS. 10/25 completed Not Available Not Available Not Available ceftriaxo ne 1 gram solution for injection Take 0.25 g by injectio n route. 11/09 completed Not Available Not Available Not Available amitripty line 25 mg tablet Take 1 tablet every day by oral route at bedtime for 30 days. 2011 active Not Available Not Available Not Avai lable oxycodone -acetamin ophen 10 mg-325 mg tablet 06/16 completed Not Available Not Available Not Available gabapenti n 800 mg tablet 1 po tid prn chronic pain 01/12 completed Not Available Not Available Not Available ciproflox acin 0.3 % eye drops INSTILL 1 DROP INTO AFFECTED EYE(S) BY OPHTHALM IC ROUTE EVERY 2 HOURSWHI LE AWAKE FOR 2 DAYS THEN 1 DROP EVERY 4 HRS WHILE AWAKE FOR 5 DAYS 11/09 completed Not Available Not Available Not Available phenazopy ridine 100 mg tablet TAKE 1 TABLET BY MOUTH THREE TIMES DAILY NEEDED. 12/10 completed Not Available Not Available Not Available baclofen 10 mg tablet 1 bid ( from ER) 05/24 completed Not Available Not Available Not Available gemfibroz il 600 mg tablet Take 1 tablet twice a day by oral route before meals for 30 days. 2011 active not taking Not Available Not Available Not Available cephalexi n 500 mg capsule TAKE 1 CAPSULE BY MOUTH EVERY 6 HOURS FOR 10 DAYS 01/12 completed Not Available Not Available Not Available pantopraz ole 40 mg tablet,de layed release TAKE 1 TABLET BY MOUTH ONCE DAILY 11/09 completed Not Available Not Available Not Available erythromy pietro 5 mg/gram (0.5 %) eye ointment 08/10 completed Not Available Not Available Not Available esomepraz ole magnesium 40 mg capsule,d elayed release TAKE 1 CAPSULE DAILY 01/21 completed Not Available Not Available Not Available nitrofura ntoin macrocrys yojana 100 mg capsule TAKE 1 CAPSULE BY MOUTH EVERY 12 HOURS WITH MEALS FOR 7 DAYS. 07/17 completed Not Available Not Available Not Available nystatin 100,000 unit/gram topical cream Apply twice a day by topical route as needed 12/18 completed Not Available Not Available Not Available lisinopri l 10 mg tablet TAKE 1 TABLET DAILY 05/24 completed Not Available Not Available Not Available glimepiri de 4 mg tablet Take 1 tablet every day by oral route for 30 days. 2012 active stopped this one Not Available Not Available Not Available lidocaine 5 % topical patch APPLY 1 PATCH TO SKIN FOR 12 HOURS, THEN REMOVE FOR 12 HOURS. active Not Available Not Available No t Available indometha pietro 25 mg capsule 09/06 completed Not Available Not Available Not Available gabapenti n 300 mg capsule Take 1 capsule 4 times a day by oral route as needed for 30 days. 2011 active Not Available Not Available Not Avai lable omeprazol e 20 mg capsule,d elayed release 09/06 completed Not Available Not Available Not Available aspirin 81 mg chewable tablet Chew 1 tablet every day by oral route. active Not Available Not Available No t Available diclofena c sodium 75 mg tablet,de layed release 02/21 completed Not Available Not Available Not Available ammonium lactate 12 % topical cream APPLY TO FOOT AND LEG BILATERA L TWICE DAILY active Not Available Not Available No t Available pravastat in 20 mg tablet Take 1 tablet every day by oral route in the evening. 10/31 completed Not Available Not Available Not Available lisinopri l 5 mg tablet 1 po daily 11/09 completed Not Available Not Available Not Available hydrochlo rothiazid e 25 mg tablet Take 1 tablet every day by oral route for 30 days. active Not Available Not Available No t Available mupirocin 2 % topical ointment APPLY TO THE AFFECTED AREA THREE TIMES DAILY. 12/16 completed Not Available Not Available Not Available metoprolo l succinate ER 25 mg tablet,ex tended release 24 hr TAKE 1 TABLET BY MOUTH DAILY active Not Available Not Available No t Available ibuprofen 600 mg tablet TAKE 1 TABLET EVERY 6 HOURS NEEDED. 02/04 completed Not Available Not Available Not Available oxycodone -acetamin ophen 7.5 mg-325 mg tablet 05/17 completed Not Available Not Available Not Available gentamici n 40 mg/mL injection solution Take 2 mL by injectio n route. 11/09 completed Not Available Not Available Not Available zolpidem 10 mg tablet Take 1 tablet every day by oral route in the evening for 30 days. 2011 active not taking now Not Available Not Available Not Available ketorolac 60 mg/2 mL intramusc ular solution Inject 1 mL by intramus cular route. 10/25 completed Not Available Not Available Not Available ketoconaz ole 2 % topical cream Apply by topical route bid to affected skin 2012 active Not Available Not Available Not Avai lable fluoxetin e 20 mg capsule Take 2 capsules every day by oral route for 30 days. 2011 active Not Available Not Available Not Avai lable metformin ER 500 mg tablet,ex tended release 24 hr 1 po q pm 10/25 completed Not Available Not Available Not Available doxycycli ne hyclate 100 mg tablet Take 1 tablet twice a day by oral route for 30 days. 05/10 completed Not Available Not Available Not Available loratadin e 10 mg tablet Take 1 tablet every day by oral route for 90 days. 2011 active Not Available Not Available Not Avai lable amoxicill in 875 mg-potass ium clavulana te 125 mg tablet TAKE 1 TABLET EVERY 12 HOURS WITH MEALS. 02/04 completed Not Available Not Available Not Available esomepraz ole magnesium 20 mg capsule,d elayed release Take 1 capsule every day by oral route. 01/21 completed Not Available Not Available Not Available Estrace 0.01% (0.1 mg/gram) vaginal cream Insert by vaginal route and use external ly as directed 10/02 completed Not Available Not Available Not Available Novolog Mix 70-30 FlexPen U-100 Insulin 100 unit/mL subcutane ous pen INJECT 25 UNITS BEFORE BREAKFAS T AND BEFORE DINNER WITH TITRATIO N TO MAXIMUM DAILY DOSE OF 150 active Not Available Not Available No t Available Vitamin D3 25 mcg (1,000 unit) capsule Take by oral route. 01/13 completed Not Available Not Available Not Available Novolog FlexPen U-100 Insulin aspart 100 unit/mL (3 mL) subcutane ous Inject 30 units 3 times a day by subcutan eous route as directed for 90 days. 01/07 completed Not Available Not Available Not Available nitrofura ntoin monohydra te/macroc rystals 100 mg capsule Take 1 capsule every 12 hours by oral route for 7 days. 06/14 completed Not Available Not Available Not Available duloxetin e 30 mg capsule,d elayed release TAKE 3 CAPSULES DAILY 12/16 completed Not Available Not Available Not Available duloxetin e 60 mg capsule,d elayed release Take 1 capsule every day by oral route for 30 days. 2013 active Not Available Not Available Not Avai lable Lyrica 150 mg capsule Take 1 capsule twice a day by oral route. 2012 active Not Available Not Available Not Avai lable Vitamin D3 5000 units daily 01/07 completed Not Available Not Available Not Available NovoFine 30 30 gauge x 1/3 needle active Not Available Not Available Not Available hydrochlo rothiazid e 12.5 mg tablet TAKE 1 TABLET BY MOUTH ONCE DAILY. 12/16 completed Not Available Not Available Not Available FreeStyle Lite Strips USE DIRECTED TO TEST GLUCOSE 3 TIMES DAILY active Not Available Not Available No t Available Lantus Solostar U-100 Insulin 100 unit/mL (3 mL) subcutane ous pen INJECT 60 UNITS UNDER THE SKIN EVERY EVENING 12/16 completed Not Available Not Available Not Available Cholestyr amine Light 4 gram oral powder TAKE 1/4 SCOOP TWICE DAILY BEFORE MEALS. 01/12 completed Not Available Not Available Not Available Easy Touch 31 gauge x 3/16 needle USE TWICE A DAY TO DELIVER INSULIN active Not Available Not Available No t Available ketorolac 30 mg/mL injection solution Inject 1 mL every 6 hours by intraven ous route. 2012 active toradol Not Available Not Available Not Avai lable Dexilant 60 mg capsule, delayed release Take 1 capsule every day by oral route for 90 days. 2011 active Not Available Not Available Not Avai lable Suprep Bowel Prep Kit 17.5 gram-3.13 gram-1.6 gram oral solution USE DIRECTED 01/12 completed Not Available Not Available Not Available Creon 36,000 unit-114, 000 unit-180, 000 unit capsule,d elayed release TAKE 1 CAPSULE BY MOUTH WITH EACH MEAL AND SNACK 10/25 completed Not Available Not Available Not Available Levemir FlexTouch U-100 Insulin 100 unit/mL (3 mL) subcutane ous pen Inject 60 units every day by subcutan eous route in the evening for 90 days. 01/21 completed Not Available Not Available Not Available Jardiance 10 mg tablet TAKE 1 TABLET BY MOUTH EVERY DAY. 08/10 completed Not Available Not Available Not Available Jardiance 25 mg tablet Take 1 tablet every day by oral route. 01/03 completed Not Available Not Available Not Available Trulicity 1.5 mg/0.5 mL subcutane ous pen injector active Not Available Not Available Not Available Trulicity 0.75 mg/0.5 mL subcutane ous pen injector 07/17 completed Not Available Not Available Not Available BD Ultra-Fin e Micro Pen Needle 32 gauge x 1/4 USE DIRECTED TWICE DAILY. active Not Available Not Available No t Available Novolin 70-30 FlexPen U-100 Insulin 100 unit/mL (70-30) subcutane ous Inject 34 units twice a day by subcutan eous route. active Not Available Not Available No t Available FreeStyle Ricardo 3 Sensor device active Not Available Not Available Not Available Vitals Date Recorded Body height Body mass index (BMI) Body weight Heart rate Oxygen saturation Oxygen saturation in Arterial blood by Pulse oximetry Body temperature Systolic blood pressure Diastolic blood pressure Provider Name and Address Organization Details Last Updated DateTime 3 172.72 cm 32.4 kg/m2 15935.1 7 g 85 /min 97 % 97 % 98.6 [degF] 142 mm[Hg] 77 mm[Hg] [facility] 3 10:49:51 Date Recorded Body height Body mass index (BMI) Body weight Heart rate Oxygen saturation Oxygen saturation in Arterial blood by Pulse oximetry Body temperature Systolic blood pressure Diastolic blood pressure Provider Name and Address Organization Details Last Updated DateTime 3 172.72 cm 34.5 kg/m2 809359. 17 g 95 /min 97 % 97 % 98.6 [degF] 152 mm[Hg] 84 mm[Hg] [facility] 3 15:01:38 Date Recorded Body height Body weight Heart rate Oxygen saturation Oxygen saturation in Arterial blood by Pulse oximetry Body temperature Systolic blood pressure Diastolic blood pressure Provider Name and Address Organization Details Last Updated DateTime 4 172.72 cm 52291.3 4 g 63 /min 97 % 97 % 98.1 [degF] 143 mm[Hg] 89 mm[Hg] [facility] 4 10:38:49 Date Recorded Body height Body mass index (BMI) Body weight Heart rate Oxygen saturation Oxygen saturation in Arterial blood by Pulse oximetry Body temperature Systolic blood pressure Diastolic blood pressure Provider Name and Address Organization Details Last Updated DateTime 4 172.72 cm 34.6 kg/m2 019976. 57 g 90 /min 98 % 98 % 98.2 [degF] 166 mm[Hg] 96 mm[Hg] [facility] 4 11:19:52 Date Recorded Body height Body mass index (BMI) Body weight Heart rate Oxygen saturation Oxygen saturation in Arterial blood by Pulse oximetry Body temperature Systolic blood pressure Diastolic blood pressure Provider Name and Address Organization Details Last Updated DateTime 5 172.72 cm 34.4 kg/m2 372962. 28 g 101 /min 98 % 98 % 98.1 [degF] 171 mm[Hg] 100 mm[Hg] [facility] 5 14:12:52 Social History Question Answer Notes LastModified by Organization Details LastModified Time Tobacco Smoking Status Never Smoker Not Available [facility] 06/18/2020 03:11:19 Do You Have An Advance Directive? No [id number] Information not available 06/18/2020 What Is Your Level Of Alcohol Consumption? None [id number] Information not available 06/18/2020 Animal Exposure? Yes Information not available 07/07/2011 Auto Related Injury? No Information not available 07/07/2011 What Is Your Level Of Caffeine Consumption? Occasional [id number] Information not available 06/18/2020 How Much Tobacco Do You Chew? None [id number] Information not available 06/18/2020 In The 14 Days Before Symptom Onset, Have You Had Close Contact With A Laboratory-jasmyne hernandez COVID-19 While That Case Was Ill? No [id number] Information not available 06/18/2020 In The 14 Days Before Symptom Onset, Have You Had Close Contact With A Person Who Is Under Investigation For COVID-19 While That Person Was Ill? No [id number] Information not available 06/18/2020 Have You Been To An Area Known To Be High Risk For COVID-19? No [id number] Information not available 06/18/2020 Are You Currently Employed? Yes [id number] Information not available 06/18/2020 Diabetes Yes Information not available 07/07/2011 What Type Of Diet Are You Following? REGULAR [id number] Information not available 06/18/2020 Which Illicit Or Recreational Drugs Have You Used? None [id number] Information not available 06/18/2020 Education 2 Year College Information not available 07/07/2011 What Is The Highest Grade Or Level Of School You Have Completed Or The Highest Degree You Have Received? [id number] Information not available 02/04/2023 What Is Your Occupation? [employer] [id number] Information not available 06/18/2020 Family History Of Heart Disease? No Information not available 07/07/2011 High Blood Pressure No Information not available 07/07/2011 Live Alone Or With Others? With Others Information not available 05/24/2020 Marital Status [email or web address] Information not available 07/07/2011 What Was The Date Of Your Most Recent Tobacco Screening? 10/26/2023 Information not available 10/26/2023 How Many Children Do You Have? 1 One Son Age 34 And He Lives In [place] And Works In [employer] And Is Engaged. Information not available 02/04/2023 What Is Your Relationship Status? Information not available 02/04/2023 Seat Belts Used Routinely Yes [id number] Information not available 07/07/2011 Smoke Alarm In Home Yes Information not available 07/07/2011 How Much Tobacco Do You Smoke? No [id number] Information not available 06/18/2020 General Stress Level High Information not available 05/24/2020 Work Related Injury? No Information not available 07/07/2011 Sex: Unknown Functional Status Question Answer Note LastModified by Organizat ion Details LastModified Time Are you able to care for yourself? Yes [id number] Information not available 06/18/2020 What is your exercise level? Occasional [id number] Information not available 06/18/2020 Mental Status None recorded. Family History Relationship Description Onset Age of this Age Resolved Age Notes LastModified by Organization Details LastModified Time Maternal Grandmother Malignant neoplastic disease ovaria n (previ ously record ed as Cancer ) Not available 10/07/2015 10:21:56 Father Diabetes mellitus previo usly record ed as Diabet es Not available 10/07/2015 10:21:56 Mother Cerebrovascu lar [facility]; left side weakne ss Not available 05/24/2020 11:36:12 Mother Diabetes mellitus Not available 2019 11:35:03 Medical History Condition Response Coronary Artery Disease N Gout N Kidney Stones N Blood Diseases N Hyperthyroidism N Depression Y Hypothyroidism N COPD N Developmental or Behavioral Disorders N Eczema, Hives or other skin conditions N Anxiety Disorder N Muscle, Joint, or Bone Problems N Vision or Eye Problems N Arthritis N Serious Illness or Injuries N Congenital Anomalies N Cancer Y Stroke N Bladder or Kidney Problems N Hospital Admission other than N High Cholesterol N Liver Disease N Fibromyalgia N Kidney Disease N Heart Problems N Ear or Hearing Problems N ADD or ADHD N Thyroid Problems N Skin Problems N Anemia N Constipation N Diabetes Y Bedwetting N Seizures/Epilepsy N Tuberculosis N Diverticulitis N Allergies N Asthma N GERD/Reflux Y Heart Disease N Pulmonary Embolism N Hypertension Y Osteoporosis N Chicken Pox N Gynecological History Statement/Question Response Current Control Method Hysterectom y Obstetrics History GPAL:G 0 P 0 0 0 0 Immunizations Vaccine Type Date Status Note Provider Nam e and Address Organization Details Recorded Time pneumococcal polysaccharide PPV23 9 completed Not Available [facility] 09/09/2019 02:12:07 DTaP 4 completed Marely Guzman MD [address] [facility], [address], [place], [address], [facility] 08/10/2014 10:40:32 Influenza, split virus, trivalent, preservative 4 completed [facility] 09/28/2014 09:01:10 Tdap 3 completed Marely Guzman MD [address] [place] [address], [address], [facility] 02/07/2023 10:19:57 Influenza, split virus, trivalent, preservative 5 completed Not Available [facility] 09/23/2019 02:12:32 Past Encounters Encounter ID Performer Location Encounter Start Date Encounter Closed Date Diagnosis/Indication Diagnosis SNOMED-CT Code Diagnosis ICD10 Code Diagnosis Note [id number] Marely Guzman MD [address] [id number] 7 06/16/2011 14:44:35 06/19/2011 17:04:49 [id number] [facility] [address] [id number] 7 07/02/2011 08:52:30 07/03/2011 10:04:30 [id number] [facility] [address] [id number] 7 07/31/2011 10:18:21 07/31/2011 17:49:50 [id number] Marely Guzman MD [address] [address] 7 09/03/2011 15:44:16 09/07/2011 16:19:17 [id number] Marely Guzman MD [address] [address] 7 09/28/2011 13:22:11 09/28/2011 16:28:47 [id number] Marely Guzman MD [address] [address] 7 10/20/2011 08:53:51 10/20/2011 11:35:44 [id number] Marely Guzman MD [facility] [address] [id number] 7 11/19/2011 10:22:33 11/19/2011 16:59:[id number] [address] 7 02/02/2012 13:41:16 02/03/2012 08:10:54 [id number] Marely Guzman MD [address] [id number] 7 02/15/2012 14:51:51 02/17/2012 09:39:34 [id number] Marely Guzman MD [address] [id number] 7 03/25/2012 13:39:17 03/25/2012 15:10:40 [id number] Marely Guzman MD [address] [id number] 7 08/04/2012 10:58:48 08/04/2012 14:24:03 [id number] Marely Guzman MD [address] [id number] 7 10/28/2012 13:15:13 10/28/2012 17:08:12 [id number] Marely Guzman MD [address] [id number] 7 01/10/2013 09:17:01 01/10/2013 17:22:13 [id number] Marely Guzman MD [address] [id number] 7 04/04/2013 14:18:17 04/04/2013 17:21:02 [id number] Marely Guzman MD [address] [address] 7 07/10/2013 09:10:36 07/10/2013 15:27:50 Palpitations 69738229 Abdominal pain 79345689 Benign ess ential hypertension 9108715 Insomnia w ith sleep apnea 91649660 Hyperlipidemia 88614370 Gastroesop hageal reflux disease 396838827 [id number] Marely Guzman MD [address] [id number] 7 11/23/2013 09:38:43 11/23/2013 16:38:27 Benign essential hypertension 1814041 Disorder d ue to type 2 diabetes mellitus 025746630 Disorder o f peripheral autonomic nervous system 332132488 Gastroesop hageal reflux disease 127613273 Hyperlipidemia 84737873 Insomnia w ith sleep apnea 69133137 Type 2 nando betes mellitus without complication 986503312 [id number] [facility] [address] [place] [id number] 7 04/06/2014 10:53:54 04/10/2014 17:25:12 Diabetes mellitus 77449950 Disorder o f peripheral autonomic nervous system 192362293 Benign ess ential hypertension 6460256 Gastroesop hageal reflux disease 583505953 Hypertensive disorder 89697682 [id number] Marely Guzman MD [facility] [place] [id number] 7 05/11/2014 10:58:19 05/11/2014 13:43:37 Foot joint - painful on movement 515387090 Joint pain in ankle and foot 691372953 Peripheral neuropathic pain 397048910 Screening mammography 61683100 [id number] Ro Dickson [facility] [address] [place] [id number] 7 07/16/2014 10:29:46 07/17/2014 12:12:44 Ankle joint pain 896272518 Hyperlipidemia 42877555 Joint pain in ankle and foot 084818686 Palpitations 10073276 Peripheral neuropathic pain 791994867 Type 2 nando betes mellitus without complication 507828093 [id number] Marely Guzman MD [facility] [address] [address] 08/10/2014 08:58:24 08/14/2014 15:52:16 Dog bite - wound 300289978 Neuropathy 633190075 Dyspnea 390804909 [id number] [facility] [address] [place] [id number] 7 12/14/2014 09:00:50 12/14/2014 13:43:19 Type 2 diabetes mellitus 82549341 Peripheral neuropathic pain 621177220 Hypertensive disorder 00374945 Hyperlipidemia 63308213 Gastroesop hageal reflux disease 752799167 Disorder o f urinary tract 05742622 Candidal vulvovaginitis 30991907 Screening for cancer 55448050 Menopausal problem 53675691 [id number] Marely Guzman MD [facility] [address] [id number] 07/30/2015 09:16:35 08/02/2015 10:52:17 Adult health examination 628944642 Z00.01 Benign ess ential hypertension 7553851 I10 Cellulitis of lower limb 660473710 L03.119 Disorder d ue to type 2 diabetes mellitus 314776621 E11.42 Dry skin dermatitis 2600 24323 L85.3 Onychomycosis 600283716 B35.1 [id number] Marely Guzman MD [facility] [address] [place], [place] [address] 10/07/2015 09:18:16 10/09/2015 09:14:56 Hyperglycemia 51152039 R73.9 Disorder d ue to type 2 diabetes mellitus 173052409 E11.42 Candidal vulvovaginitis 22763822 B37.3 [id number] Marely Guzman MD [place] [id number] 7 04/24/2016 10:06:52 05/04/2016 08:23:56 Adult health examination 778863817 Z00.01 Screening mammography 24 726701 Z12.31 Uncontroll ed type 2 diabetes mellitus 608179896 E11.65 Diabetic p eripheral neuropathy 270831567 E11.40 Acne 31006950 L70.9 Essential hypertension 86110052 I10 Body mass index 30+ - obesity 583618535 Z68.36 [id number] Marely Guzman MD [address] [id number] 7 10/02/2016 08:34:15 10/06/2016 10:07:33 Uncontrolled type 2 diabetes mellitus 903346866 E11.65 Diabetic p eripheral neuropathy 437170883 E11.40 Angular cheilitis 068663 005 K13.0 Essential hypertension 65564230 I10 Gastroesop hageal reflux disease 510599709 K21.9 Hyperlipidemia 65014808 E78.5 [id number] Marely Guzman MD [address] [address] 7 11/30/2016 09:46:12 11/30/2016 14:50:34 Dysuria 50109887 R30.0 Lateral epicondylitis 20 5844870 M77.12 Constipation 47234908 K5 9.00 [id number] Marely Guzman MD [address] [id number] 7 02/12/2017 10:44:56 02/16/2017 08:33:36 Uncontrolled type 2 diabetes mellitus 567555736 E11.65 Disorder d ue to type 2 diabetes mellitus 750654575 E11.42 Urinary tr act infectious disease 10207985 N39.0 Candidal vulvovaginitis 10113250 B37.3 [id number] Marely Guzman MD [facility] [place] [id number] 7 08/10/2017 15:08:01 08/11/2017 08:36:02 Cellulitis and abscess of groin 078295373 L02.214 Antibiotic -associated diarrhea 492105526 T36.95XA Uncontroll ed type 2 diabetes mellitus 914150804 E11.65 [id number] Marely Guzman MD [place] [id number] 7 10/25/2017 15:31:10 10/27/2017 09:46:20 Strain of rotator cuff capsule 29895327 S46.011A Headache 64684206 R51 [id number] Marely Guzman MD [place] [id number] 7 11/22/2017 09:55:04 11/23/2017 08:50:30 Shoulder pain 24323929 M25.511 [id number] Marely Guzman MD [address] [address] 7 05/23/2018 15:00:00 05/24/2018 08:25:53 Contusion of knee 33825884 S80.02XA [id number] Marely Guzman MD [address] [id number] 7 01/03/2019 14:24:55 01/05/2019 09:28:10 Type 2 diabetes mellitus without complication 785805533 E11.9 Disorder d ue to type 2 diabetes mellitus 339396612 E11.42 Essential hypertension 32458035 I10 Gastroesop hageal reflux disease 916112299 K21.9 Diabetic p eripheral neuropathy 746141634 E11.40 she thinks she has a bottle partial of gabapentin Cellulitis of left foot 5720304305 1807287 L03.116 Active or passive immunization 936864096 Z23 [id number] Marely Guzman MD [facility] [address] [id number] 01/22/2020 09:38:53 01/22/2020 15:55:30 Shoulder joint painful on movement 517466115 M25.519 Uncontroll ed type 2 diabetes mellitus 149508228 E11.65 Diabetic p eripheral neuropathy 805579548 E11.40 she thinks she has a bottle partial of gabapentin Essential hypertension 59161686 I10 Hyperlipidemia 98405524 E78.5 Gastroesop hageal reflux disease 635462611 K21.9 Fatigue 85999210 R53.83 Body mass index 30+ - obesity 469380861 Z68.34 [id number] Marely Guzman MD [facility] [address] [place] [address] 7 05/24/2020 09:42:58 05/27/2020 08:38:33 Increased frequency of urination 605461760 R35.0 Urinary tr act infectious disease 49799676 N39.0 Influenza vaccination declined 678091269 Z28.21 Uncontroll ed type 2 diabetes mellitus 272195942 E11.65 Insulin tr eated type 2 diabetes mellitus 240404653 Z79.4 Essential hypertension 36150443 I10 Hyperlipidemia 40969304 E78.5 Screening for malignant neoplasm of colon 070342127 Z12.11 Screening mammography 24 115169 Z12.31 Adult heal th examination 891421478 Z00.01 Pain of le ft hip joint 9588868025 60375 M25.552 [id number] Marely Guzman MD [facility] [address] [address] 01/07/2021 14:46:45 01/15/2021 15:07:32 Localized swelling of left lower leg 2906276787 6843202 R22.42 Essential hypertension 39495394 I10 Uncontroll ed type 2 diabetes mellitus 921133234 E11.65 [id number] Marely Guzman MD [facility] [address] [address] 7 10/16/2021 10:37:11 10/17/2021 08:16:25 Increased frequency of urination 045046101 R35.0 Viral syndrome 432952189 B34.9 Uncontroll ed type 2 diabetes mellitus 599021163 E11.65 Anemia 401199510 D64.9 Headache 31678160 R51.9 [id number] Marely Guzman MD [facility] [address] [address] 7 12/16/2021 10:25:04 12/18/2021 09:22:48 Hyperlipidemia 48706131 E78.5 Adult heal th examination 400402848 Z00.01 Increased frequency of urination 112337522 R35.0 Influenza vaccination declined 602527680 Z28.21 Uncontroll ed type 2 diabetes mellitus 731081865 E11.65 Insulin tr eated type 2 diabetes mellitus 678283336 Z79.4 Essential hypertension 92952967 I10 Screening for malignant neoplasm of colon 766970627 Z12.11 Screening mammography 24 801167 Z12.31 Pain of le ft hip joint 6975050989 24920 M25.552 Hiatal her [place] with gastroesophageal reflux 652632895 K21.00 Mass of soft tissue 4449 25504 R22.9 Body mass index 30+ - obesity 065693504 Z68.34 Diabetic p eripheral neuropathy 484852473 E11.40 [id number] Marely Guzman MD [facility] [address] [address] 7 01/12/2023 13:23:09 01/14/2023 09:13:12 Acute sinusitis 74089952 J01.90 Uncontroll ed type 2 diabetes mellitus 713434428 E11.65 Noncomplia nce with medication regimen 455489587 Z91.A4 Body mass index 30+ - obesity 613755455 Z68.30 [id number] Marely Guzman MD [facility] [address] [address] 7 02/04/2023 10:43:25 02/08/2023 08:03:15 Adult health examination 865133786 Z00.01 Increased frequency of urination 648454070 R35.0 Hyperlipidemia 27476968 E78.5 Influenza vaccination declined 058164422 Z28.21 Uncontroll ed type 2 diabetes mellitus 433854218 E11.65 Insulin tr eated type 2 diabetes mellitus 766297838 Z79.4 Essential hypertension 62165362 I10 Screening mammography 24 279208 Z12.31 Hiatal her [place] with gastroesophageal reflux 816376569 K21.00 Body mass index 30+ - obesity 473112279 Z68.34 Diabetic p eripheral neuropathy 019000347 E11.40 Injury of lower leg 1256 24475 S89.90XA Edema of l ower extremity 580406529 R60.0 Active or passive immunization 440564327 Z23 Immunization advised 310 736187 Z71.9 Screening for cardiovascular system disease 807359524 Z13.6 [id number] Mareyl Guzman MD [facility] [address] [place], [place] [address] 04/05/2023 14:53:37 04/06/2023 08:02:55 Dental abscess 732066234 K04.7 Pain of le ft shoulder joint 3781898009 3494806 M25.512 [id number] Marely Guzman MD [facility] [address] [place], [place] [address] 10/26/2023 10:32:20 10/28/2023 08:55:22 Hyperlipidemia 96806597 E78.5 Urinary tr act infectious disease 77349562 N39.0 Diabetic p eripheral neuropathy 275349114 E11.40 Unable to cut own toenails 796677011 Z74.1 [id number] Marely Guzman MD [facility] [address] [place] [id number] 7 07/17/2024 11:09:05 07/17/2024 12:03:21 Increased frequency of urination 261619243 R35.0 Urinary tr act infectious disease 17460135 N39.0 Acute conjunctivitis 537 13179 H10.32 [id number] Marely Guzman MD [facility] [address] [place] [id number] 7 11/09/2024 13:56:31 11/09/2024 15:39:57 Chest pain 74204500 R07.9 Essential hypertension 83524231 I10 Diabetic p eripheral neuropathy 176154625 E11.40 Her last A1C was 7.7 % the end of August. Her average now is consistent with A1C of 8%.She will see her endocrinol ogist next week as well. Degenerati on of cervical intervertebral disc 75923618 M50.30 She is scheduled tentativel y for the neck surgery in January but she has to have the A1C under 7 and definitely will need a cardiac clearance. Hyperlipidemia 23504622 E78.5 Uncontroll ed type 2 diabetes mellitus 965506622 E11.65 Health Concerns Section Related Observation LastModified by Organization Detai ls LastModified Time None Recorded Concern Status LastModified by Organization Details LastModified Time None Recorded Advance Directives Directive N: Payers Encounter Date Sequence Insurance Name Policy Number Policy Vega Covered Member ID Vega Member ID Guarantor Name 02/04/2023 1 [employer] - [employer] - [employer] () Keyshawn Eng [id number] Rosemarie Eng 04/05/2023 1 [employer] - [employer] - [employer] () Keyshawn Eng [id number] Rosemarie Eng 10/26/2023 1 [employer] - [employer] - [employer] () Keyshawn Eng [id number] Rosemarie Eng 07/17/2024 1 [employer] - [employer] - [employer]IME () Keyshawn Eng [id number] Rosemarie Eng 11/09/2024 1 [employer] - DOS ON OR AFTER 2024 - [employer] () Rosemarie Eng [id number] Rosemarie Eng Notes Date Note Type Note Provider Name and Address Organization Details Recorded Time 02/04/2023 text/html she has seen her hot stamp operator Wednesday and she increased the jun She is getting back into taking better care of her diabetesShe has had some falls recently as she has a severe neuropathy. Her rt leg went out on her getting off the mower and she cant get up by herself. She had a fall in her shop as well She feels like her legs are getting worse and both are bruised up The lateral right leg still feels different to her.She has profound peripheral neuropathy She does usually stay up and busy at work and does not sit much. Marely Guzman MD [address] [facility], [facility] [address], [place], [address], [facility] 02/07/2023 10:53:32 04/05/2023 text/html she was taking a moxil for a tooth abscess and she needs a dental extraction. He thinks she needs more antibiotic. Her left jaw swelling is improving. The pain woke her up at 4 am.Her sugars are doing better in spite of this as she is following with the hot stamp operator. She is going to start on Trulicity to help the weight. Marely Guzman MD [address] [facility], [place] [address], [place], [address], [facility] 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 She is tolerating it better if she injects it in the left leg and not getting sick with it. Her last dose of that was about 5 days ago. She had been off the Trulicity for months and has just restarted it but she notes it does help keep her appetite and glucose down.She did go to a foot doctor at in August who clipped her toenails and prescribed ammonium lactate cream. He advised her he could not do anything really for her and the coating manager in [place] does not take . We will see if Dr. Hutchinson will take that insurance and help with her toenails because she cannot care for them herself as she is prone to cutting herself and has a profound peripheral neuropathy. Marely Guzman MD [address] [facility], [address], [place], [address], [facility] 10/27/2023 13:09:02 07/17/2024 text/html has had UTI symp toms for a week and having some right flank pain. Still going to hot stamp operator and her last A1C was down to 7.5%.She has some irritation in the left eye with crusting and it is a little red laterally and bothersome.Her neck is a problem and is going to specialists at as the pain radiates into both arms at night. Marely Guzman MD [address] [facility], [facility] [address], [place], [address], [facility] 07/17/2024 11:53:47 11/09/2024 text/html She had an injec tion in her neck in August for neck arthritis and degenerative disc disease. The injection only lasted 2 days and she did feel a lot of chest pressure when she had the actual injection as he told her she would. She saw Dr Price at pain management.She refused to take lisinopril when we prescribed it and someone else tried to prescribe that even recently.She is denying any shortness of breath but has just noticed that she just feels weak with any walking.She is waking up in the mornings and it was the worst this morning. Today this pain has not gone away and feels heavy in her chest. She denies nausea or shortness of breath This morning it was from armpit to armpit. And it is not going away. When she walks to the back of her store and to the front her legs have been feeling very weak She has had difficulty climbing steps due to leg weakness as well.She has only been taking her insulin and trulicity and occasionally takes the Pravastatin but she declined to take the lisinopril that the hot stamp operator wanted her to take. Marely Guzman MD [address] [facility], [address], [place], [address], [facility] 11/09/2024 15:23:45 OBGyn Episode No OBEpisode recorded.
--- OUTSIDE RECORDS SUMMARY | 2024-11-30 21:09 | XMS_ITS | Continuity of Care Document ---
Author Organization [facility], [facility] Address [address], [address] [place] [address] Care Team Providers Care Analytical Engineer Name Role Phone [facility] Referring Tye murolong Assessment Encounter Date Assessment Date Assessment LastModified by Organization Details LastModified Time 11/09/2024 11/09/2024 Rosemarie has been having chest heaviness since August. She had [...] Modified Time Details Appointments None recorded. Lab None recorded. Referral cardiologis t referral 2024 025 moncho 12 Jr Knox MD, [address], [place], [address], 08:10:49 Procedures None recorded. Surgeries None recorded. Imaging None recorded. Medication Orders metoprolol succinate ER 25 mg tablet,exte nded release 24 hr 2024 025 [facility], [address] [place], [address], 15:18:58 Patient TargetsNo targets recorded. Patient InstructionsNo instructions recorded. Reason for Referral Flight Control Specialist Referral for Ch est pain Referring Physician: Marely Guzman, Family Medicine, Encounter Date: 11/09/2024 Results Created Date Observation Date Name Description Value Unit Range Abnormal Flag Note LastModifiedBy Organization Detail LastModifiedTime 11/30/19 25 11/28/2024 imagi ng/di agnos tic resul t No observ ation record ed. [address], [place], [address], 11/29/2024 00:27:52 11/30/19 25 11/28/2024 imagi ng/di agnos tic resul t No observ ation record ed. [place] [address], [place], [address], 11/29/2024 00:32:28 Result Notes None recorded. Problems Name Problem SNOMED Code Status Onset Date Resolution Date Notes Provider Name and Address Organization Details Recorded Time Abdominal pain 85870356 Active Marely Guzman MD [address], [address], [facility] 6 10:11:24 Palpitations 93482193 Active Marely Guzman MD [address], [address], [facility] 6 10:11:24 Disorder due to type 2 diabetes mellitus [id number] Rebeca Guzman MD [address], [address], [facility] 6 20:07:02 Hypertensive disorder 66176473 Active Marely Guzman MD [address] [place] [address], [place] - [facility] 6 10:11:24 Diabetes mellitus 57892669 Active Marely Guzman MD [address] [place] [address], [place] [facility] 6 10:11:24 Edema 608146613 Active Marely Guzman MD [address] [address], [place] - [facility] 6 10:11:24 Foot joint - painful on movement 338333046 Active Marely Guzman MD [address] [address], [place] [facility] 6 10:11:24 Joint pain in ankle and foot Active Marely Guzman MD [address] [address], [facility] 6 10:11:24 Peripheral neuropathic pain 852976416 Active Marely Guzman MD [address] [address], [facility] 6 10:11:24 Cellulitis of lower limb 172452976 Active Marely Guzman MD [address] [address], [facility] 6 10:11:24 Ankle joint pain 528888258 Active Marely Guzman MD [address] [address], [facility] 6 10:11:24 Dog bite - wound 718858630 Active Marely Guzman MD [address] [address], [facility] 6 10:11:24 Neuropathy 624029769 Rebeca Guzman MD [address] [address], [facility] 6 10:11:24 Dyspnea 795801555 Rebeca Guzman MD [address] [address], [facility] 6 10:11:24 Type 2 diabetes mellitus 14773382 Active Marely Guzman MD [address] [address], [facility] 6 10:11:24 Menopausal problem 13657324 Rebeca Guzman MD [address] [address], [facility] 6 10:11:24 Dry skin dermatitis 732292142 Active Marely Guzman MD [address] [address], [facility] 6 10:11:24 Onychomycosis 298679167 Rebeca Guzman MD [address] [address], [facility] 6 10:11:24 Hyperglycemia 07579229 Rebeca Guzman MD [address] [address], [facility] 6 20:07:02 Dermatophytosi s of the body Active Marely Guzman MD [address] [address], [facility] 6 10:11:24 Gastroesophage al reflux disease 189519287 Active Marely Guzman MD [address] [address], [place] [facility] 6 10:11:24 Urinary tract infectious disease 18303603 Active Marely Guzman MD [address] [address], [place] [facility] 6 10:11:24 Benign essential hypertension 1947090 Active Marely Guzman MD [address] [place] [address], [place] [facility] 6 10:11:24 Disorder of peripheral autonomic nervous system 888027443 Active Marely Guzman MD [address] [address], [place] [facility] 6 10:11:24 Allergic rhinitis 28268751 Active Marely Guzman MD [address] [place] [address], [place] [facility] 6 10:11:24 Disorder of urinary tract 37552789 Active Marely Guzman MD [address] [address], [facility] 6 10:11:24 Disorder of nervous system due to type 2 diabetes mellitus 120316569 Active Marely Guzman MD [address] [address], [place] 6 10:11:24 Sciatica 34311741 Rebeca Guzman MD [address] [address], [place] 6 10:11:24 Pure hyperglyceride miroslava 239625201 Active Marely Guzman MD [address] [address], [place] [facility] 6 10:11:24 Type 2 diabetes mellitus without complication 326514712 Active Marely Guzman MD [address] [place] [address], [place] [facility] 6 10:11:24 Obstructive sleep apnea syndrome 24332420 Active Marely Guzman MD [address] [place] [address], [place] [facility] 6 10:11:24 Anemia 605465386 Active Marely Guzman MD [address] [place] [address], [place] [facility] 6 10:11:24 Hyperlipidemia 51929603 Active Marely Guzman MD [address] [place] [address], [place] [facility] 6 10:11:24 Backache 910305752 Active Marely Guzman MD [address] [place] [address], [place] [facility] 6 10:11:24 Urine finding 438730619 Active Marely Guzman MD [address] [place] [address], [place] [facility] 6 10:11:24 Malaise and fatigue 915891636 Rebeca Guzman MD [address] [place] [address], [place] [facility] 6 10:11:24 Mononeuritis of lower limb Active Marely Guzman MD [address] [address], [facility] 6 10:11:24 Candidal vulvovaginitis 59075090 Active Marely Guzman MD [address] [place] [address], [place] [facility] 6 20:07:02 Polyuria 01124324 Active Marely Guzman MD [address] [address], [facility] 6 10:11:24 Carpal tunnel syndrome 51688029 Active Marely Guzman MD [address] [address], [facility] 6 10:11:24 Pancreatic steatorrhea 97030480 Active Marely Guzman MD [address] [address], [place] 6 10:11:24 Insomnia with sleep apnea 85404840 Active Marely Guzman MD [address] [address], [place] 6 10:11:24 Acute pancreatitis 930632913 Active Marely Guzman MD [address] [address], [facility] 6 10:11:24 Depressive disorder 92967870 Active Marely Guzman MD [address] [address], [facility] 6 10:11:24 Proteinuria 15195671 Active Marely Guzman MD [address] [address], [facility] 6 10:11:24 Cellulitis and abscess of toe 255623723 Active Marely Guzman MD [address], [address] [place] [address], [facility] 6 10:11:24 Obesity 968493770 Active Marely Guzman MD [address] [address], [facility] 6 10:11:24 Enthesopathy of elbow region 53539918 Active Marely Guzman MD [address] [address], [facility] 6 10:11:24 Lyme disease 43146979 Active Marely Guzman MD [address] [address], [facility] 6 10:11:24 Chest pain 23592456 Active Marely Guzman MD [address] [address], [facility] 6 10:11:24 Low back pain 571501201 Active Marely Guzman MD [address] [address], [facility] 6 10:11:24 Problem Notes None recorded. Procedures Surgical History Date Name Laterality Status Provider Name and Address Organization Details Recorded Time 04/28/20 18 Shoulder joint surgery completed Marely Guzman MD [address] [address], [facility] 01/22/2020 10:15:24 12/22/19 18 Shoulder joint surgery completed Marely Guzman MD [address] [place] [address], [facility] 01/22/2020 10:14:22 08/23/19 11 Other completed Not Available [facility] 07/07/2011 04:58:32 08/23/19 10 Cholecystectomy completed Not Available [facility] 07/07/2011 04:58:32 08/23/19 02 Hysterectomy completed Not Available [facility] 07/07/2011 04:58:32 Imaging Results None recorded. Procedure Notes None recorded. Medical Equipment None [...] Updated DateTime 5 172.72 cm 34.4 kg/m2 806184. 28 g 101 /min 98 % 98 % 98.1 [degF] 171 mm[Hg] 100 mm[Hg] [facility] 5 14:12:52 Social History Question Answer Notes LastModified by Organization Details LastModified Time Tobacco Smoking Status Never Smoker Not Available [facility] 06/18/2020 03:11:19 Do You Have An Advance Directive? No [id number] Information not available 06/18/2020 What Is Your Level Of Alcohol Consumption? None [id number] Information not available 06/18/2020 Animal Exposure? Yes Information not available 07/07/2011 Auto Related Injury? No Information not available 07/07/2011 What Is Your Level Of Caffeine Consumption? Occasional [id number] Information not available 06/18/2020 How Much Tobacco Do You Chew? None [id number] Information not available 06/18/2020 In The 14 Days Before Symptom Onset, Have You Had Close Contact With A Laboratory-confi rmed COVID-19 While That Case Was Ill? No [id number] Information not available 06/18/2020 In The 14 Days Before Symptom Onset, Have You Had Close Contact With A Person Who Is Under Investigation For COVID-19 While That Person Was Ill? No [id number] Information not available 06/18/2020 Have You Been To An Area Known To Be High Risk For COVID-19? No [id number] Information not available 06/18/2020 Are You Currently Employed? Yes [id number] Information not available 06/18/2020 Diabetes Yes Information not available 07/07/2011 What Type Of Diet Are You Following? REGULAR [id number] Information not available 06/18/2020 Which Illicit Or Recreational Drugs Have You Used? None [id number] Information not available 06/18/2020 Education 2 Year College Information not available 07/07/2011 What Is The Highest Grade Or Level Of School You Have Completed Or The Highest Degree You Have Received? 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 No Information not available 07/07/2011 High Blood Pressure No [id number] Information not available 07/07/2011 Live Alone Or With Others? With Others Information not available 05/24/2020 Marital Status [id number] Information not available 07/07/2011 What Was The Date Of Your Most Recent Tobacco Screening? 10/26/2023 Information not available 10/26/2023 How Many Children Do You Have? 1 One Son Age 34 And He Lives In [place] And Works In [employer] And Is Engaged. Information not available 02/04/2023 What Is Your Relationship Status? Information not available 02/04/2023 Seat Belts Used Routinely Yes Information not available 07/07/2011 Smoke Alarm In Home Yes Information not available 07/07/2011 How Much Tobacco Do You Smoke? No [id number] Information not available 06/18/2020 General Stress Level High Information not available 05/24/2020 Work Related Injury? No [id number] Information not available 07/07/2011 Sex: Unknown Functional Status Question Answer Note LastModified by Organizat ion Details LastModified Time Are you able to care for yourself? Yes [id number] Information not available 06/18/2020 What is your exercise level? Occasional [id number] Information not available 06/18/2020 Mental Status None [...] Mother Cerebrovascu lar accident lives in a nursin g home; left side weakne ss Not available 05/24/2020 11:36:12 Mother Diabetes mellitus Not available 2019 11:35:03 Medical History Condition Response Coronary Artery Disease N Gout N Kidney Stones N Blood Diseases N Hyperthyroidism N COPD N Depression Y Hypothyroidism N Developmental or Behavioral Disorders N Eczema, [...] N Seizures/Epilepsy N Tuberculosis N Diverticulitis N Asthma N Allergies N GERD/Reflux Y Heart Disease N Pulmonary Embolism N Hypertension Y Osteoporosis N Chicken Pox N Gynecological History Statement/Question Response Current Control Method Hysterectom y Obstetrics History GPAL:G 0 P 0 0 0 0 Immunizations Vaccine Type Date Status Note Provider Nam e and Address Organization Details Recorded Time pneumococcal polysaccharide PPV23 9 completed Not Available [facility] 09/09/2019 02:12:07 DTaP 4 completed Marely Guzman MD [address], [address], [facility] 08/10/2014 10:40:32 Influenza, split virus, trivalent, preservative 4 completed [facility] 09/28/2014 09:01:10 Tdap 3 completed Marely Guzman MD [address] [address], [place], [address], [facility] 02/07/2023 10:19:57 Influenza, split virus, trivalent, preservative 5 completed Not Available [facility] 09/23/2019 02:12:32 Past Encounters Encounter ID Performer Location Encounter Start Date Encounter Closed Date Diagnosis/Indication Diagnosis SNOMED-CT Code Diagnosis ICD10 Code Diagnosis Note [id number] Marely Guzman MD [facility] [address] [address] 11/09/2024 13:56:31 11/09/2024 15:39:57 Chest pain 61183002 R07.9 Essential hypertension 08354867 I10 Diabetic p eripheral neuropathy 636684167 E11.40 Her last A1C was 7.7 % the end of August. Her average now is consistent with A1C of 8%.She will see her endocrinol ogist next week as well. Degenerati on of cervical intervertebral disc 27330328 M50.30 She is scheduled tentativel y for the neck surgery in January but she has to have the A1C under 7 and definitely will need a cardiac clearance. Hyperlipidemia 89901433 E78.5 Uncontroll ed type 2 diabetes mellitus 831892222 E11.65 Health Concerns Section Related Observation LastModified by Organization Detai ls LastModified Time None Recorded Concern Status LastModified by Organization Details LastModified Time None Recorded Payers Encounter Date Sequence Insurance Name Policy Number Policy Vega Covered Member ID Vega Member ID Guarantor Name 11/09/2024 1 [place] - DOS ON OR AFTER 2024 - [employer] () Rosemarie Eng [id number] Rosemarie Eng Notes Date Note Type Note Provider Name and Address Organization Details Recorded Time 11/09/2024 text/html She had an injec tion [...] declined to take the lisinopril that the district engineer wanted her to take. Marely Guzman MD [address] [facility], [address], [place], [address], [facility] 11/09/2024 15:23:45 OBGyn Episode No OBEpisode recorded.
--- OUTSIDE RECORDS SUMMARY | 2024-11-30 21:09 | XMS_ITS | Data Portability ---
Author Organization EDDIE JENNIFER [facility] & [place], [facility] ADMIN Address [address] [place] [phone] Care Team Providers Care Defect Repairer Glassware Name Role Phone [facility] Primary Care Provider Assessment No assessment recorded. Plan of Treatment Reminders Order Date Submit Date Provider Last Modified By Organization Details Last Modified Time Details Appointments None recorded. Lab None recorded. Referral None recorded. Procedures None recorded. Surgeries None recorded. Imaging None recorded. Medication Orders Imodium A-D 2 mg capsule 2021 022 [facility], [address] [place], [address], 2 13:52:50 Patient TargetsNo targets recorded. Patient InstructionsNo instructions recorded. Reason for Referral None Reported. Problems Name Problem SNOMED Code Status Onset Date Resolution Date Notes Provider Name and Address Organization Details Recorded Time Pure hypercholester olemia 481826754 Active Cy bradley EDDIE - [facility] - [place] & [place] 2 13:21:56 Sleep apnea 97412108 Active Cy bradley EDDIE - [facility] - [place] & [place] 2 13:21:56 Depressive disorder 01988613 Active Cy bradley EDDIE - [facility] - [place] & [place] 2 13:21:56 Chronic diarrhea 849778741 Active 2021 Cy bradley EDDIE Estevez [facility] - [place] & [place] 2 13:21:56 Anemia 743151183 Active Cy bradley EDDIE - [facility] - [facility] [place] 2 13:21:56 Dysphagia 14198170 Active 2021 EDDIE Duong - [facility] - [place] & [place] 2 13:21:56 Screening for malignant neoplasm of colon Active 2020 EDDIE Duong - [facility] - [place] & [place] 2 13:21:56 Fatty stool 83861899 Active 2021 EDDIE Duong - [facility] - [place] & [place] 2 13:21:56 Type 2 diabetes mellitus 69318923 Active Cy bradley, EDDIE - [facility] - [place] & [place] 2 13:21:56 Gastroesophage al reflux disease 172379414 Active 2021 EDDIE Duong - [facility] - [place] & [place] 2 13:21:56 Exocrine pancreatic insufficiency 85616107 Active 2021 Blu King MD [address] [place] [address], [phone] EDDIE - [facility] - [place] & [place] 2 13:50:10 Notes:Some problems listed i n Document: #[id number] could not be added to this patient's chart. Please review this document and add these problems to the patient's chart manually as needed. Problem Notes None recorded. Procedures Surgical History Date Name Laterality Status Provider Name and Address Organization Details Recorded Time 04/06/[address] of abdomen completed Cy MORGAN - [facility] - [place] & [place] 05/11/2022 13:33:37 02/26/20 22 gastric emptying study completed Cy MORGAN - [facility] - [place] & [place] 05/11/2022 13:35:44 02/25/20 22 Colonoscopy completed Cy Estevez [facility] - [place] & [place] 05/11/2022 13:36:06 02/25/20 22 EGD/Endoscopy completed Cy Estevez [facility] - [place] & [place] 05/11/2022 13:36:17 05/11/20 18 partial repair of rotator cuff completed Cy MORGAN - [facility] & [place] 05/11/2022 13:31:14 01/06/20 18 partial repair of rotator cuff completed Cy MORGAN JENNIFER [facility] & [place] 05/11/2022 13:30:40 08/23/19 16 reconstruction of lateral collateral ligament of elbow using tendon graft completed Cy MORGAN JENNIFER [facility] & [place] 05/11/2022 13:32:34 08/23/19 11 [facility]oma [facility] [place] 05/11/2022 13:31:39 04/05/20 02 partial hysterectomy completed Cy MORGAN JENNIFER [facility] & [place] 05/11/2022 13:29:46 11/03/19 02 Cholecystectomy completed Cy Cortezgiseymour MORGAN JENNIFER [facility] & [place] 05/11/2022 13:30:08 Imaging Results None recorded. Procedure Notes None recorded. Medical Equipment None Reported. Allergies No known drug allergies Medications Name Sig Start Date Stop Date Status Note LastModified by Organization Details LastModified Time metformin 500 mg tablet 07/27 completed Not Available Not Available Not Available nystatin 100,000 unit/mL oral suspension SWISH AND SWALLOW 10 ML BY MOUTH 4 TIMES DAIY BEFORE MEALS AND AT BEDTIME active Not Available Not Available No t Available pravastatin 40 mg tablet TAKE 1 TABLET EVERY EVENING active Not Available Not Available No t Available fluconazole 150 mg tablet TAKE 1 TABLET BY MOUTH DAILY. 07/27 completed Not Available Not Available Not Available lisinopril 20 mg tablet 20 mg by oral route. active Not Available Not Available No t Available sulfamethox azole 800 mg-trimetho prim 160 mg tablet TAKE 1 TABLET BY MOUTH EVERY 12 HOURS FOR 10 DAYS 05/11 completed Not Available Not Available Not Available butalbital- acetaminoph en-caffeine 50 mg-325 mg-40 mg tablet TAKE 1 TABLET BY MOUTH EVERY 4 HOURS NEEDED. 05/11 completed Not Available Not Available Not Available gabapentin 800 mg tablet Take 800 mg by oral route. 05/11 completed Not Available Not Available Not Available cephalexin 500 mg capsule TAKE 1 CAPSULE BY MOUTH EVERY 6 HOURS FOR 10 DAYS 07/27 completed Not Available Not Available Not Available pantoprazol e 40 mg tablet,lilian yed release TAKE 1 TABLET BY MOUTH ONCE DAILY active Not Available Not Available No t Available metoprolol succinate ER 25 mg tablet,exte nded release 24 hr 25 mg by oral route. active Not Available Not Available No t Available Novolog Mix 70-30 FlexPen U-100 Insulin 100 unit/mL subcutaneou s pen active Not Available Not Available Not Available Cholestyram ine Light 4 gram oral powder TAKE 1/4 SCOOP TWICE DAILY BEFORE MEALS. 05/11 completed Not Available Not Available Not Available Suprep Bowel Prep Kit 17.5 gram-3.13 gram-1.6 gram oral solution USE DIRECTED 05/11 completed Not Available Not Available Not Available Creon 36,000 unit-114,00 0 unit-180,00 0 unit capsule,del ayed release TAKE 1 CAPSULE BY MOUTH WITH EACH MEAL AND SNACK active Not Available Not Available No t Available Imodium A-D 2 mg capsule Take 1 capsule every day by oral route. 2021 active Not Available Not Available Not Avai lable Vitals Date Recorded Body height Body mass index (BMI) Body weight Body temperature Respiratory rate Heart rate Provider Name and Address Organization Details Last Updated DateTime 2 172.72 cm 34.2 kg/m2 754513 g 97.9 [degF] 18 /min 77 /min Cy RODRIGUEZ [facility] & [place] 2 13:20:51 Date Recorded Body height Body mass index (BMI) Body weight Body temperature Heart rate Respiratory rate Systolic blood pressure Diastolic blood pressure Provider Name and Address Organization Details Last Updated DateTime 2 172.72 cm 32.8 kg/m2 62632.9 5 g 98.7 [degF] 94 /min 18 /min 151 mm[Hg] 82 mm[Hg] Cy RODRIGUEZ [facility] & [place] 2 15:32:18 Social History Question Answer Notes LastModified by Organizat ion Details LastModified Time Tobacco Smoking Status Never Smoker EDDIE Duong [facility] & [place] 05/11/2022 13:27:39 Do You Have An Advance Directive? No dennys Information not available 05/11/2022 What Is Your Level Of Alcohol Consumption? None Information not available 05/11/2022 Are You Blind Or Do You Have Difficulty Seeing? No Information not available 05/11/2022 What Is Your Level Of Caffeine Consumption? Moderate Information not available 07/27/2022 Are You Deaf Or Do You Have Serious Difficulty Hearing? No Information not available 05/11/2022 What Type Of Diet Are You Following? REGULAR Information not available 07/27/2022 How Many Children Do You Have? 1 Information not available 07/27/2022 What Is Your Relationship Status? Information not available 07/27/2022 Do You Use Your Seat Belt Or Car Seat Routinely? Yes Information not available 05/11/2022 Are You Passively Exposed To Smoke? No Information no t available 05/11/2022 Do You Feel Stressed (tense, Restless, Nervous, Or Anxious, Or Unable To Sleep At Night)? [id number] Information not available 05/11/2022 Do You Use Any Illicit Or Recreational Drugs? No Information not available 05/11/2022 Do You Or Have You Ever Used Any Other Forms Of Tobacco Or Nicotine? No Information not available 05/11/2022 Sex: Unknown Functional Status Question Answer Note LastModified by Organization D etails LastModified Time What is your exercise level? Moderate Information not available 05/11/2022 Mental Status None recorded. Family History Relationship Description Onset Age of this Age Resolved Age Notes LastModified by Organization Details LastModified Time Maternal Grandfather Acute stroke [email or web address] Not available 05/11/2022 13:27:06 Mother Hypertensive disorder [email or web address] Not available 2021 13:26:13 Mother Diabetes mellitus [email or web address] Not available 2021 13:26:39 Father Diabetes mellitus mruggieri Not available 2021 13:26:54 Medical History Condition Response Coronary Artery Disease N Gout N Colon Cancer N Kidney Stones N Hyperthyroidism N Hypothyroidism N COPD N Depression N Osteoporosis/Osteopenia N Diverticulitis/Diverticulosis N Colon Polyps N Anxiety Disorder N Diabetes Y Bleeding Disorder N Arthritis N Seizures/Epilepsy N Tuberculosis N Hyperlipidemia N Cancer N Stroke N Asthma N Sleep Apnea Y GERD/Reflux Y Hepatitis N Cirrhosis N Liver Disease N Heart Disease N Hypertension N Kidney Disease N Gynecological HistoryNo gynecological history recorded. Obstetrics History GPAL:G 0 P 0 0 0 0 Past Encounters Encounter ID Performer Location Encounter Start Date Encounter Closed Date Diagnosis/Indication Diagnosis SNOMED-CT Code Diagnosis ICD10 Code Diagnosis Note [id number] Blu King MD [facility] [address] [place] [phone] 05/11/2022 12:41:18 05/11/2022 15:46:03 Fatty stool 99485888 R19.5 Exocrine p ancreatic insufficiency 55230622 K86.81 The patient's recent imaging demonstrat es a fatty replaced pancreas, the patient has been on Creon, but on questionin g the patient misses at least 1 dose before A meal every day. with this in mind we reinforce the importance of compliance with Creon and explained the reasoning. Continue Creon at current dose, take it as prescribed , continue PPI therapy. Patient will call in 2 weeks to report how her diarrhea does on appropriat e therapy. continue Creon, add Imodium Gastroesop hageal reflux disease 593757050 K21.9 reflux symptomato logy well controlled on PPI therapy. Continue current therapy [id number] Blu King MD [facility] [address] [place] [address],[address] [phone] 07/27/2022 14:01:54 07/27/2022 16:09:42 Exocrine pancreatic insufficiency 83934124 K86.81 With increase of the patient's Creon to recommende d dosing, the patient's diarrhea has improved dramatical ly. We will continue the patient on Creon 42274 units 1 capsule with each meal and each snack. Follow-up in 6 months Gastroesop hageal reflux disease 838584071 K21.9 reflux symptomato logy well controlled on PPI therapy. Continue current therapy Health Concerns Section Related Observation LastModified by Organization Detai ls LastModified Time None Recorded Concern Status LastModified by Organization Details LastModified Time None Recorded Advance Directives Directive N: Payers Encounter Date Sequence Insurance Name Policy Number Policy Vega Covered Member ID Vega Member ID Guarantor Name 05/11/2022 1 [employer] - DOS PRIOR TO 2024 - [employer] () Keyshawn Eng [id number] Rosemarie Eng 07/27/2022 1 [employer] - DOS PRIOR TO 2024 - [employer] () Keyshawn Eng [id number] Rosemarie Eng Notes Date Note Type Note Provider Name and Address Organization Details Recorded Time 05/11/2022 text/html the patient pres ents today in follow-up regards to steatorrhea felt secondary to pancreatic insufficiency. The patient is on Creon, but reports that she misses at least 1 dose every day. With this in mind the patient has had continuing diarrhea. She is better on some days worse on other days. We also discussed with the patient whether not she is following lower fat diet. patient does reports significant improvement in heartburn symptomatology taking her PPI appropriately. Denies melena or bright red blood per rectum. No reported weight loss. Recent CT scan demonstrated 8th pancreas that was somewhat fatty replaced, no focal lesions. Blu King MD [address] [place] [address],[address], [place], [address], [facility] & [place] 05/11/2022 14:01:48 07/27/2022 text/html Presents in rout ine follow-up regarding pancreatic exocrine insufficiency, gastroesophageal reflux disease reporting that she is doing quite well. We saw her last we stressed the importance that she take the Creon with each meal and each snack, and since that time the patient's diarrhea has essentially resolved. She actually reports that she has a tendency towards a little bit of constipation al. The patient denies any heartburn or indigestion except perhaps maybe once a week she will have a little bit of breakthrough she eats the wrong foods. He does note that she has been limited in her diet because of recent dental work. Blu King MD [address] [place] [address],[address], [place], [address], [facility] & [place] 07/27/2022 15:54:34 OBGyn Episode No OBEpisode recorded.
== END 2024-11-28 23:59 | disposition home or self-care (01) ==
LOC: RAD 11:00
PROVIDERS: PCP Family Medicine; Visit Provider Nurse Practitioner Family
DX: R07.9 Chest pain, unspecified (principal); E11.9 Type 2 diabetes mellitus without complications
CPT/HCPCS: 78452; 93017; 93018; A9502; J2785

== ENCOUNTER 2024-12-25 09:10 | Outpatient (CLI) | payer OTHER, SELFPAY ==
--- OUTSIDE RECORDS SUMMARY | 2024-12-25 09:13 | XMS_ITS | Data Portability ---
Author Organization EDDIE JENNIFER [facility] & [place], [facility] ADMIN Address [address] [place] [phone] Care Team Providers Care Social Service Liaison Name Role Phone [facility] Primary Care Provider Assessment No assessment recorded. Plan of Treatment Reminders Order Date Submit Date Provider Last Modified By Organization Details Last Modified Time Details Appointments None recorded. Lab None recorded. Referral None recorded. Procedures None recorded. Surgeries None recorded. Imaging None recorded. Medication Orders Imodium A-D 2 mg capsule 2021 022 [facility] Total [facility], [address] [place], [address], 2 13:52:50 Patient TargetsNo targets recorded. Patient InstructionsNo instructions recorded. Reason for Referral None Reported. Problems Name Problem SNOMED Code Status Onset Date Resolution Date Notes Provider Name and Address Organization Details Recorded Time Pure hypercholester olemia 937634435 Active Cy bradley EDDIE - [facility] - [place] & [place] 2 13:21:56 Sleep apnea 15868632 Active Cy bradley EDDIE - [facility] - [place] & [place] 2 13:21:56 Depressive disorder 83553241 Active Cy bradley EDDIE - [facility] - [place] & [place] 2 13:21:56 Chronic diarrhea 898049587 Active 2021 Cy bradley EDDIE Estevez [facility] - [place] & [place] 2 13:21:56 Anemia 370749885 Active Cy [facility]adley [facility] [place] 2 13:21:56 Dysphagia 18151803 Active 2021 EDDIE Duong - [facility] - [place] & [place] 2 13:21:56 Screening for malignant neoplasm of colon Active 2020 EDDIE Duong - [facility] - [place] & [place] 2 13:21:56 Fatty stool 42512559 Active 2021 EDDIE Duong - [facility] - [place] & [place] 2 13:21:56 Type 2 diabetes mellitus 50314357 Active Cy bardley, EDDIE - [facility] - [place] & [place] 2 13:21:56 Gastroesophage al reflux disease 358018674 Active 2021 EDDIE Duong - [facility] - [place] & [place] 2 13:21:56 Exocrine pancreatic insufficiency 70921819 Active 2021 Blu King MD [address] [place] [address], [phone] EDDIE - [facility] - [place] & [place] 2 13:50:10 Notes:Some problems listed i n Document: #[id number] could not be added to this patient's chart. Please review this document and add these problems to the patient's chart manually as needed. Problem Notes None recorded. Procedures Surgical History Date Name Laterality Status Provider Name and Address Organization Details Recorded Time 04/06/[address] of abdomen completed Cy MORGAN - [facility] - [place] & [place] 05/11/2022 13:33:37 02/26/20 22 gastric emptying study completed Cy MORGAN - [facility] - [place] & [place] 05/11/2022 13:35:44 02/25/20 22 Colonoscopy completed Cy Estevez [facility] - [place] & [place] 05/11/2022 13:36:06 02/25/20 22 EGD/Endoscopy completed Cy Estevez [facility] - [place] & [place] 05/11/2022 13:36:17 05/11/20 18 partial repair of rotator cuff completed Cy MORGAN - LPNT [facility] & [place] 05/11/2022 13:31:14 01/06/20 18 partial repair of rotator cuff completed Cy MORGAN JENNIFER [facility] & [place] 05/11/2022 13:30:40 08/23/19 16 reconstruction of lateral collateral ligament of elbow using tendon graft completed Cy MORGAN JENNIFER [facility] & [place] 05/11/2022 13:32:34 08/23/19 11 [facility]oma [facility] [place] 05/11/2022 13:31:39 04/05/20 02 partial hysterectomy completed Cy MORGAN JENNIFER [facility] & [place] 05/11/2022 13:29:46 11/03/19 02 Cholecystectomy completed Cy Cortezgiseymour MORGAN JENNIFER [facility] & [place] 05/11/2022 13:30:08 Imaging Results None recorded. Procedure [...] Updated DateTime 2 172.72 cm 34.2 kg/m2 152773 g 97.9 [degF] 18 /min 77 /min Cy RODRIGUEZ [facility] & [place] 2 13:20:51 Date Recorded Body height Body mass index (BMI) Body weight Body temperature Heart rate Respiratory rate Systolic blood pressure Diastolic blood pressure Provider Name and Address Organization Details Last Updated DateTime 2 172.72 cm 32.8 kg/m2 16930.9 5 g 98.7 [degF] 94 /min 18 /min 151 mm[Hg] 82 mm[Hg] Cy RODRIGUEZ [facility] & [place] 2 15:32:18 Social History Question Answer Notes LastModified by Organizat ion Details LastModified Time Tobacco Smoking Status Never Smoker EDDIE Duong [facility] & [place] 05/11/2022 13:27:39 Do You Have An Advance [...] Anxious, Or Unable To Sleep At Night)? [id number] Information not available 05/11/2022 Do You Use [...] Cancer N Kidney Stones N Hyperthyroidism N Depression N COPD N Hypothyroidism N Osteoporosis/Osteopenia N Diverticulitis/Diverticulosis N Colon Polyps N Diabetes Y Anxiety Disorder N Bleeding Disorder N Arthritis N Seizures/Epilepsy N [...] SNOMED-CT Code Diagnosis ICD10 Code Diagnosis Note [id number] [facility] [address] [place] [phone] 05/11/2022 12:41:18 05/11/2022 15:46:03 Fatty stool 12627154 R19.5 Exocrine p ancreatic insufficiency 98685034 K86.81 The patient's recent imaging demonstrat es [...] Creon, add Imodium Gastroesop hageal reflux disease 803871647 K21.9 reflux symptomato logy well controlled on PPI therapy. Continue current therapy [id number] Blu King MD [facility] [address] [place] [address],[address] [phone] 07/27/2022 14:01:54 07/27/2022 16:09:42 Exocrine pancreatic insufficiency 50687700 K86.81 With increase of the patient's Creon to recommende d dosing, the patient's diarrhea has improved dramatical ly. We will continue the patient on Creon 06560 units 1 capsule with each meal and each snack. Follow-up in 6 months Gastroesop hageal reflux disease 242001032 K21.9 reflux symptomato logy well controlled on PPI therapy. Continue current therapy Health Concerns Section Related Observation LastModified by Organization Detai ls LastModified Time None Recorded Concern Status LastModified by Organization Details LastModified Time None Recorded Advance Directives Directive N: Payers Encounter Date Sequence Insurance Name Policy Number Policy Vega Covered Member ID Vega Member ID Guarantor Name 05/11/2022 1 [facility] [place] [facility] () Keyshawn Eng [id number] Rosemarie Eng 07/27/2022 1 [facility] () Keyshawn Eng [id number] Rosemarie Eng Notes Date Note Type Note [...] replaced, no focal lesions. Blu King MD [address] [place] [address],[address], [place], [address], [facility] 05/11/2022 14:01:48 07/27/2022 text/html Presents in rout [...] of recent dental work. Blu King MD [address] [place] [address],[address], [place], [address], [facility] 07/27/2022 15:54:34 OBGyn Episode No OBEpisode recorded.
[2024-12-25] MEDS: IVABRADINE HCL 7.5MG TABLET 15 MG PO (10:00)
[2024-12-25] MEDS: METOPROLOL TARTRATE 25MG TABLET 25 MG (10:00)
--- NOTE | 2024-12-25 10:00 | CT_ITS ---
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 A noncontrast coronary calcium scan was performed. A CT attenuation threshold of 130 Hounsfield units (HU) was used for the detection of calcium in contiguous voxels of 1 sq mm in area to be counted as individual lesions. Bolus tracking in the ascending aorta with a threshold of 180 HU was performed. Immediately afterwards, ECG synchronized cardiac CT was then performed from the cardiac base to apex using retrospective gating with ECG tube current modulation. A total of 85 mL of Isovue 370 mg/mL contrast medium was administered at 5 mL/sec followed by a saline flush using a biphasic injection protocol. A tube voltage of 120 KVp was used. The average heart rate at the time of acquisition was 72 bpm and regular. Image Reconstruction Transaxial images were reconstructed at 0.67 mm slide thickness. Data was reviewed interactively on an advanced workstation capable of 2 and 3-dimensional displays in all conventional reconstruction formats, including multiplanar reformations, maximum intensity projections, curved multiplanar reformations, and volume rendered reconstructions. When applicable, selected routine images describing the relevant coronary anatomy and pathology were saved and sent to PACS. Complications None Technical Quality Overall image quality was good. Coronary artery opacification was adequate. Total DLP (Dose-Length Product) is 1538.5 mGy-cm. The reported value represents the total of one or more individual components during the CT acquisition of this date and at this time, and as such, the same value may appear in more than one CT report depending on the interpreting/reporting physicians. COMPARISON None FINDINGS CT Coronary Calcium Scoring LMA (Left Main Artery) = 0 LAD (Left Anterior Descending) = 0 LCX (Left Coronary Circumflex) = 0 RCA (Right Coronary Artery) = 0 Total Calcium Score = 0 using the AJ-130 method. The interpretation of the calcium heart score is based on the following continuum*: 0 = no calcified plaque detected (risk of coronary artery disease is very low ??? less than 5%) 1-10 = calcium detected in extremely minimal levels (risk of coronary diseases is still low ??? less than 10%) 11-100 = mild levels of plaque detected with certainty (mild or minimal narrowing of heart arteries is likely) 101-400 = definite,at least moderate levels of plaque detected (relatively high risk of a heart attack within 3-5 years) >401-999 = extensive levels of plaque detected (high risk of heart attack, high levels of vascular disease are present, high likelihood of at least one significant coronary narrowing) *The calcium heart score quantifies the burden of coronary calcification/plaque in the coronary arteries. The calcium heart score is not able to evaluate the presence or burden of non-calcified (i.e. soft) plaque. There is no identifiable calcification in the aortic valve, mitral annulus or mitral valve, pericardium, or myocardium. Coronary CT Angiography The coronary arterial system is right dominant. Quantitative Stenosis Grading: Left Main (LM): The left main originates normally from the left sinus of Valsalva. The LM bifurcates into the left anterior descending artery and left circumflex artery. The LM is patent with no evidence of atherosclerosis. Left Anterior Descending (LAD) and Diagonal Branches: The LAD gives off 3 diagonal branch(es). The LAD and its branches are patent with no evidence of atherosclerosis. There is no evidence of LAD-myocardial bridge. Left Circumflex (LCX) and Obtuse Marginals (OM): The LCX gives off 1 Obtuse Marginal (OM) branch(es). The LCX and its branches are patent with no evidence of atherosclerosis. Right Coronary Artery (RCA): The RCA originates normally from the right sinus of Valsalva. The RCA gives off a posterior descending artery (PDA) and posterolateral (PL) branches. The RCA and its branches are patent with no evidence of atherosclerosis. Non-Coronary Cardiac Findings: Analysis of the left ventricular (LV) structure and function was performed after 3-D reconstruction of the LV from axial images, with user-corrected automatic contouring for assessment of LV volumes and user-defined reconstruction from oblique planes for measurement of 3-D cardiac structure and function. -The left ventricle systolic function is normal. -There is no left atrial appendage filling defect. Two right pulmonary veins and two left pulmonary veins drain normally into the left atrium. -No pericardial thickening or calcification. -Central and branch pulmonary arteries in the [id number] are unremarkable. -Thoracic aorta within the visualized thoracic aortic-branches in the [id number] is unremarkable. Extracardiac Structures No significant extra-cardiac findings. Note, however, that this study is focused on the cardiac findings. IMPRESSION -Absence of coronary calcification with an Agatston score = 0 using the AJ-130 method. -No evidence of significant flow-limiting atherosclerosis of the coronary arteries. -No evidence of coronary anomalies. -CAD-RADS 0. Management recommendations per ACC/AHA guidelines*, as clinically appropriate. *Recommendations: CAD RADS 0: Reassurance. Consider non-atherosclerotic causes of chest pain. CAD RADS 1: Consider non-atherosclerotic causes of chest pain. Consider preventive therapy and risk factor modification. CAD RADS 2: Consider non-atherosclerotic causes of chest pain. Consider preventive therapy and risk factor modification, particularly for patients with nonobstructive plaque in multiple segments. CAD RADS 3: Consider further functional testing. Consider symptom-guided anti-ischemic and preventive pharmacotherapy as well as risk factor modification per published guideline statements. CAD RADS 4A: Consider further functional testing or invasive coronary angiography with revascularization per published guideline statements. Consider symptom-guided anti-ischemic and preventive pharmacotherapy as well as risk factor modification per published guideline statements. CAD RADS 4B: Invasive coronary angiography recommended with revascularization per published guideline statements. Consider symptom-guided anti-ischemic and preventive pharmacotherapy as well as risk factor modification per published guideline statements. CAD RADS 5: Consider invasive angiography and/or viability assessment with revascularization per published guideline statements. Consider symptom-guided anti-ischemic and preventive pharmacotherapy as well as risk factor modification per published guideline statements. CRITICAL RESULT None COMMUNICATION Per this written report The coronary and cardiac findings of this CCTA were reviewed, reported, and signed by Jr Knox MD (Bilingual Administrative Assistant) Conclusion Electronically signed by : Sofy Knox MD 12/25/2024 12:40:18
[2024-12-25 10:07] VITALS: BMI 32.3
[2024-12-25 10:23] VITALS: BP 164/87; PULSE 81; RESP 20; TEMP 36.2; O2SAT 100
[2024-12-25 10:25] LABS: Anion Gap 6.2 mEq/L (5-15); Blood Urea Nitrogen 8 mg/dl (7-17); Calcium 9.5 mg/dl (8.4-10.2); Carbon Dioxide 34 mmol/L (22.0-30.0); Chloride 101 mmol/L (98-107); Creatinine Clearance Estimated 150 mL/min (50-200); Estimated Glomerular Filt Rate 103 ml/min (>60); GFR (African American) 125 ML/MIN (>60); Glucose 135 mg/dl (74-100); Potassium 4.2 mmoL/L (3.5-5.1); Sodium 137 mmol/L (136-145)
[2024-12-25 11:20] VITALS: BP 187/99; PULSE 78; RESP 17; O2SAT 97
[2024-12-25 11:25] VITALS: BP 145/81; PULSE 76; RESP 17; O2SAT 98
[2024-12-25 11:30] VITALS: BP 146/87; PULSE 74; RESP 17; O2SAT 97
[2024-12-25] MEDS: SODIUM CHLORIDE 0.9% 10ML SYR (RAD ONLY) 10 ML IV (12:22)
[2024-12-25] MEDS: IOPAMIDOL-370 (76%);100ML BOTTLE 85 ML IV (12:22)
[2024-12-25] MEDS: 0.9 % SODIUM CHLORIDE 50 ML VIAL IV (12:22)
== END 2024-12-25 11:41 | disposition home or self-care (01) ==
PROVIDERS: PCP Family Medicine; Visit Provider Internal Medicine
DX: R07.9 Chest pain, unspecified (principal); R53.83 Other fatigue
CPT/HCPCS: 75574; 80048; Q9967

== ENCOUNTER 2025-01-02 15:05 | Emergency (ER) | payer OTHER, SELFPAY ==
[2025-01-02 15:43] VITALS: BP 143/61; PULSE 80; O2SAT 97
--- NOTE | 2025-01-02 15:57 | ED_ITS ---
<Statement entered by Joseph Stern MD - 01/02/25 23:19> I was consulted by the KELLEY, and we discussed the complexity of the problems being addressed. I approved the treatment and management plan for this patient's care in the emergency department, thus performing a substantive portion of the medical decision making. Joseph Stern MD Discharge Plan Disposition Patient Disposition: Home, Self-Care Condition: Good Prescriptions Prescriptions: No Action lidocaine 5 % adhesive patch,medicated 1 patch topical Q24H PRN Patient Comments: APPLY 1 PATCH TO SKIN FOR 12 HOURS, THEN REMOVE FOR 12 HOURS. insulin asp prt-insulin aspart [Novolog Mix 70-30FlexPen U-100] 100 unit/mL (70-30) insulin pen 34 unit SQ BID Trulicity 3 mg/0.5 mL pen injector 3 mg SQ QWEEK metoprolol succinate 50 mg tablet extended release 24 hr 50 mg PO DAILY Qty: 90 3RF lisinopril 5 mg tablet 5 mg PO DAILY Referrals Follow up/Referrals: Marely Guzman [Primary Care Provider] - See instructions Leighann Knapp DPM [Staff Physician] - See instructions Activity Restrictions/Add. Instructions Additional Instructions/Restrictions: I recommend continuing to follow-up with cardiology however you may need vascular workup for your persistent lower extremity edema. I have also referred you to foot and ankle specialist regarding your right ankle and persistent swelling due to your right ankle injury. I recommend compression stockings and if you have any persistent new or worsening signs or symptoms please follow-up with your PCP return to the ER as needed. Clinical Impressions Clinical Impression: Lymphedema Injury of ankle, right Qualifiers: Encounter type: initial encounter Qualified Code(s): S99.911A - Unspecified injury of right ankle, initial encounter Print Language Print Language: Telugu Discharge ED Provider: Joseph Stern General Adult HPI General Chief complaint: Extremity Injury, Lower Stated complaint: right ankle swollen and painful Time Seen by Provider: 01/02/25 15:57 History of Present Illness HPI narrative: Patient presents for evaluation of right lower extremity swelling. Patient reports that approximately 2 weeks ago she rolled her ankle. Patient has peripheral neuropathy thus has not really had much symptoms from it but reports that she is having more swelling in her right lower extremity. It is starting to hurt upper calf so she presented for evaluation. She denies chest pain shortness of breath fever chills hemoptysis hematochezia melena nausea vomiting diarrhea. She denies loss of motor or sensory. 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 She does not wear compression stockings. Related Data Home Medications ?Medication ?Instructions ?Recorded ?Confirmed dulaglutide 3 mg/0.5 mL 3 mg SQ QWEEK 11/14/24 01/02/25 subcutaneous pen injector (Trulicity) insulin aspar prot-insulin aspart 34 unit SQ BID 11/14/24 01/02/25 100 unit/mL (70-30) subcutaneous pen (Novolog Mix 70-30FlexPen U-100) lidocaine 5 % topical patch 1 patch topical Q24H PRN 11/14/24 01/02/25 lisinopril 5 mg tablet 5 mg PO DAILY 01/02/25 01/02/25 Previous Rx's ?Medication ?Instructions ?Recorded metoprolol succinate 50 mg 50 mg PO DAILY #90 tabs 12/05/24 tablet,extended release 24 hr Allergies Allergy/AdvReac Type Severity Reaction Status Date / Time No Known Allergies Allergy Verified 01/02/25 14:44 [facility] Disclaimer: The information contained in this section may have been updated after the patient was seen, as this information can be updated by other users. Medical History Other chest pain Diabetes type 2 Family History Mother Hypertension Father Diabetes Social History Smoking Status: Never smoker alcohol intake: never substance use type: denies use current occupational status: employed Travel in the last 8 weeks?: Inside the [place] Have you lived/traveled outside [place] in past 30 days?: No Contact w/someone who lives/traveled outside US past 30 days?: No Exposure to someone with infectious disease in past 14 days?: No Do you have a fever (greater than 100.4 F or 38 C)?: No Have you tested positive for COVID-19?: No Exposed to someone with COVID-19 in past 14 days?: No Do you have a sore throat?: No Do you have a cough?: No Do you have any weakness?: No Do you have any diarrhea?: No Are you experiencing any unusual bleeding?: No Do you have any muscle aches/pain?: No Do you have any abdominal pain?: No Are you experiencing loss of taste or smell?: No Other Medical History Have you received the Flu Vaccine for this season: No Have you received the Pneumonia Vaccine: No ROS Obtained: Yes Systems reviewed as appropriate & no additional complaints except as documented Physical Exam General General appearance: alert and in no apparent distress ENT ENT exam: Absent mucous membranes moist Respiratory Respiratory exam: Present normal lung sounds bilaterally Cardiovascular Cardiovascular exam: Present regular rate Neurological Exam Neurological exam: Present alert and oriented X3 Medical Decision Making Medical Records Medical records reviewed: Yes I reviewed the patient's medical records. Screening: Per USPSTF and CDC recommendations, given the prevalence of disease in our region, it is our hospital?s policy to screen for HIV and viral Hepatitis for all patients aged 18 and over and those with ongoing risk factors. Kaleb Inquiry Pt receiving controlled substance: No Vital Signs: 01/02/25 15:43 01/02/25 16:00 01/02/25 16:24 Temperature Temperature Source Pulse Rate 80 78 76 Pulse Rate [Left Radial] Respiratory Rate Blood Pressure 143/61 H 142/68 H 151/73 H Blood Pressure [Right Arm] Blood Pressure Mean [Right Arm] Blood Pressure Source Automatic Cuff Automatic Cuff Blood Pressure Source [Right Arm] Blood Pressure Position Blood Pressure Position [Right Arm] 02 Sat by Pulse Oximetry 97 96 98 Oxygen Delivery Method Room Air Room Air Room Air 01/02/25 16:28 01/02/25 18:19 Temperature 98.1 F 98.2 F Temperature Source Oral Oral Pulse Rate 84 Pulse Rate [Left Radial] 82 Respiratory Rate 17 17 Blood Pressure 137/82 Blood Pressure [Right Arm] 145/87 H Blood Pressure Mean [Right Arm] 106 Blood Pressure Source Automatic Cuff Blood Pressure Source [Right Arm] Automatic Cuff Blood Pressure Position Sitting Blood Pressure Position [Right Arm] Sitting 02 Sat by Pulse Oximetry 98 Oxygen Delivery Method Room Air Room Air Lab Data Lab results reviewed: Yes I reviewed the patient's lab results. Orders (Tests/Meds): ORDERS Category Date Time Status Ankle XR -Right minimum 3 Views [XR ankle RT min 3V] Exams 01/02/25 15:59 Completed Stat Foot XR right 2 views [XR foot RT 2V] Stat Exams 01/02/25 15:59 Completed Tibia/fibula XR right 2 views [XR tibia fibula RT 2V] Exams 01/02/25 15:59 Completed Stat CA venous doppler LE RT Stat Y 01/02/25 16:29 Completed Medical Decision Narrative: In summary patient is a 54-year-old female who presents to the emergency department for evaluation of right ankle injury and swelling. Patient is hemodynamically stable upon arrival, afebrile. Physical exam is remarkable for bilateral lower extremity pitting edema however right is greater than left. There is no palpable cords induration cellulitis fluctuance. She is neurovascular intact distally. She does have 3+ pitting edema on the right 2+ on the left.. Differential diagnosis includes DVT versus occult fracture versus lymphedema versus vascular insufficiency versus peripheral vascular disease etc. Initial workup will be conducted with plain film x-rays and venous duplex bilateral lower extremities.. Initial interventions were considered however patient has already had Tylenol Motrin today thus deferred. Initial workup reviewed by me and my formal trepidation of her imaging shows no acute fracture prior to radiology read. Please see final read for formal interpretation. DVT ultrasound was negative for DVT.. Upon repeat evaluation patient is amatory in the ER. Given this patient is referred to foot and ankle specialist for further evaluation of her right lower extremity injury, she referred back to cardiology and/or her PCP for further evaluation of her vascular status of her bilateral lower extremities. I did recommend wearing compression stockings to help reduce the edema. Patient verbalized understanding and agreement. Critical Care Critical Care Time Critical Care Time: No
--- NOTE | 2025-01-02 15:59 | XR_ITS ---
PROCEDURE INFORMATION: Exam: XR Right Foot Exam date and time: 01/02/2025 4:13 PM Age: 54 years old Clinical indication: Pain; Ankle and foot; Right; Additional info: Rolled ankle 2 weeks ago persistent edema TECHNIQUE: Imaging protocol: Radiologic exam of the right foot. Views: 1 or 2 views. COMPARISON: CR Ankle R 01/02/2025 4:10 PM FINDINGS: Bones/joints: There are prominent spurs arise from the posterior plantar aspect of the calcaneus. Mild degenerative changes 1st MTP joint. There are mild claw deformities of the 2nd through 5th digits. There is no evidence of underlying fracture, dislocation or malalignment.. Soft tissues: Normal. IMPRESSION: No acute bony abnormalities.
--- NOTE | 2025-01-02 15:59 | XR_ITS ---
PROCEDURE INFORMATION: Exam: XR Right Ankle Exam date and time: 01/02/2025 4:10 PM Age: 54 years old Clinical indication: Pain; Ankle and foot; Right; Additional info: Rolled ankle 2 weeks ago persistent edema TECHNIQUE: Imaging protocol: Radiologic exam of the right ankle. Views: 3 or more views. COMPARISON: No relevant prior studies available. FINDINGS: Bones/joints: Osseous structures are intact. Joint surfaces are preserved. No fracture or malalignment. Prominent spurs arising from the plantar and posterior aspect of the calcaneus. Soft tissues: There is generalized soft tissue swelling at the ankle. IMPRESSION: No acute bony abnormalities.
--- NOTE | 2025-01-02 15:59 | XR_ITS ---
PROCEDURE INFORMATION: Exam: XR Right Tibia and Fibula Exam date and time: 01/02/2025 4:18 PM Age: 54 years old Clinical indication: Injury or trauma; Fall; Sprain or strain and swelling (edema); Ankle; Right; Lower leg; Additional info: Rolled ankle 2 weeks ago persistent edema TECHNIQUE: Imaging protocol: Radiologic exam of the right tibia and fibula. Views: 2 views. COMPARISON: CR Foot R 01/02/2025 4:13 PM FINDINGS: Bones/joints: Osseous structures are intact. No fracture or malalignment. Visualized joint surfaces are preserved. Soft tissues: Unremarkable. IMPRESSION: Negative exam. No acute bony abnormalities.
[2025-01-02 16:00] VITALS: BP 142/68; PULSE 78; O2SAT 96
[2025-01-02 16:24] VITALS: BP 151/73; PULSE 76; O2SAT 98
[2025-01-02 16:28] VITALS: BP 145/87; PULSE 82; RESP 17; TEMP 36.7; O2SAT 98; BMI 38.0
--- NOTE | 2025-01-02 16:29 | CA_ITS ---
FINAL REPORT TECHNIQUE: Multiple transverse and longitudinal images were performed of the right femoral-popliteal deep venous system with augmentation and compression maneuvers. CLINICAL HISTORY: right ankle swollen and painful. Patient states she rolled her right ankle 2 weeks ago. DM II, HTN. Redness noted at lateral ankle of RLE. Patient states it's been hot to the touch. FINDINGS: Right lower extremity duplex ultrasound demonstrates normal flow in the deep venous system. There is no abnormal echogenicity to suggest thrombus. There is normal compression and augmentation. IMPRESSION: No evidence of right DVT. Reviewed, Interpreted and Dictated by Benja Mei MD Transcribed by Danya Wasserman Authenticated and [facility]
--- NOTE | 2025-01-02 16:31 | PC.NURSE ---
1294 - Echo lab contacted for doppler.
--- NOTE | 2025-01-02 16:55 | PC.NURSE ---
doppler at bedside
[2025-01-02 18:19] VITALS: BP 137/82; PULSE 84; RESP 17; TEMP 36.8; O2SAT 98
== END 2025-01-02 18:18 | disposition home or self-care (01) ==
PROVIDERS: Emergency Provider Emergency Medicine; PCP Family Medicine
DX: I89.0 Lymphedema, not elsewhere classified (principal); S99.911A Unspecified injury of right ankle, initial encounter; G90.09 Other idiopathic peripheral autonomic neuropathy; X50.1XXA Overexertion from prolonged static or awkward postures, initial encounter
CPT/HCPCS: 73590; 73610; 73620; 93971; 99284